=== PATIENT | female | born 1955 | race Caucasian/White ===

== ENCOUNTER → 2017-03-18 | Outpatient (CLI) | payer BC ==
--- NOTE | 2017-03-18 07:22 | US ---
EXAMINATION TYPE: US extremity nonvasc mass LT DATE OF EXAM: 03/18/2017 COMPARISON: NONE CLINICAL HISTORY: Left Thigh Mass R22.42. Patient feels palpble left upper inner thigh x 2 weeks, no injury or trauma. Scanned area of concern, left upper inner thigh, there is a 2.8 x 2.4 x 3.0 solid vascular area, poss ible node. IMPRESSION: 1. Nonspecific Solid mass at the site of clinical concern. Consider Tissue diagnosis.
== END | disposition home or self-care (01) ==
LOC: RADUSWWP 06:54
PROVIDERS: ATTEND Family Medicine
DX: R22.42 Localized swelling, mass and lump, left lower limb (principal)

== ENCOUNTER → 2017-04-23 | Outpatient (CLI) | payer BC ==
--- NOTE | 2017-04-23 17:28 | PE ---
EXAMINATION TYPE: PET CT fusion skull to thigh DATE OF EXAM: 04/23/2017 CLINICAL HISTORY: History of melanoma presents with newly diagnosed left groin cancer. Left surgical excision 3 days ago. TECHNIQUE: Following the intravenous administration of 15.45 mCi of F-18 FDG, whole body images are performed from the top of skull to the toes. Images are reviewed on the computer in the coronal, ax ial, and sagittal planes. Reconstructed rotating images are created on independent workstation and r eviewed on the computer. A non-contrast CT is performed in conjunction with the PET scan. Imaging o f bilateral lower extremities is performed due to patient's history of melanoma. COMPARISON: Recent left groin ultrasound March 18, 2017. FINDINGS: HEAD AND NECK: No suspicious hypermetabolic uptake is seen in the neck or head. CHEST, MEDIASTINUM, AND HILAR REGION: No suspicious hypermetabolic uptake is seen in the thorax. ABDOMEN AND PELVIS: There is medial left groin fluid collection measuring 4.3 x 2.9 cm on image 3 ser ies 8 presumed postsurgical seroma. No suspicious hypermetabolic uptake is seen in the abdomen or pel vis. OSSEOUS STRUCTURES: Metallic hardware from bilateral hip arthroplasties causes streak artifact limiti ng evaluation of pelvic structures. Metallic hardware from the knee prosthesis limits evaluation at this level. LOWER EXTREMITIES: No suspicious hypermetabolic uptake is seen in osseous structures. Distal left Ach illes tendon is thickened with calcification and hypermetabolic uptake suggesting chronic inflammatio n. OTHER CT: There is 2 cm mucous retention cyst or polyp in inferior right maxillary sinus. Mild cardiomegaly is present. Ascending aorta measures up to 4.2 cm in diameter on axial image 124. Surgical changes from left-sided lumpectomy are noted. Cholecystectomy clips are seen. Some diverticula in the sigmoid colon are felt present. IMPRESSION: No suspicious hypermetabolic uptake is seen to suggest persistent or metastatic neoplasm after recent left groin surgery. Note is made of 4.2 cm aneurysm to the ascending aorta.
== END | disposition home or self-care (01) ==
LOC: RADPETMAIN 13:04
PROVIDERS: ATTEND Surgery
DX: C85.90 Non-Hodgkin lymphoma, unspecified, unspecified site (principal); C79.89 Secondary malignant neoplasm of other specified sites; I71.2 Thoracic aortic aneurysm, without rupture
CPT/HCPCS: 78815; A9552

== ENCOUNTER 2018-02-25 13:13 | Inpatient (IN) | payer BC ==
[2018-02-25] MEDS ORDERED: ACETAMINOPHEN TAB 325 MG TAB PO STA (14:57)
[2018-02-25] MEDS ORDERED: PIPERACILLIN-TAZOBACTAM 3.375 GM in DEXTROSE/WATER 1 50ML.BAG IVPB STA (14:58)
[2018-02-25] MEDS ORDERED: VANCOMYCIN IV PER PHARMACY 1 EACH MISC MISCELLANE PRN (14:58)
--- NOTE | 2018-02-25 15:02 | ED ---
General Adult HPI - General Source: patient, RN notes reviewed, old records reviewed Mode of arrival: ambulatory Limitations: no limitations <Radha Lopez - Last Filed: 02/25/18 16:03> <Kendrick Corona - Last Filed: 02/25/18 16:10> - General Chief complaint: Extremity Problem,Nontraumatic Stated complaint: Cellulitis Time Seen by Provider: 02/25/18 14:22 - History of Present Illness Initial comments: this Patient is a pleasant 63-year-old female chief complaint of left medial leg redness and swelling for 1 day. Patient reports she has a history of malignant melanoma, and has had lymph nodes removed in her left groin and October. Patient states that she had her other injuries related to the onset of the redness. Patient reports she is redness from her foot all the way up to her medial thigh. Patient reports that yesterday evening she started to have chills and muscle aches. No history of blood clots.Patient was [facility] by [facility] and sent here for further evaluation.she also reports that she recently saw her primary care provider for changed her thyroid medications. She does not know if maybe her some of her symptoms are related to switching her medications. (Radha Lopez) - Related Data Home Medications Medication Instructions Recorded Confirmed Multivitamin/Iron/Folic Acid 1 tab PO DAILY 09/14/16 02/25/18 [Centrum Complete Multivit Tab] Olmesartan/Hydrochlorothiazide 1 tab PO DAILY 09/14/16 02/25/18 [Benicar Hct 40-25 mg Tablet] metFORMIN HCL [Glucophage] 500 mg PO BID 09/14/16 02/25/18 Loratadine [Claritin] 10 mg PO DAILY 07/03/17 02/25/18 Biotin 10,000 mcg PO DAILY 02/25/18 02/25/18 Levothyroxine Sodium [Synthroid] 75 mcg PO DAILY 02/25/18 02/25/18 Allergies Allergy/AdvReac Type Severity Reaction Status Date / Time cyanocobalamin (vitamin B12) Allergy Rash/Hives Verified 02/25/18 13:30 midazolam [From Versed] Allergy Rash/Hives Verified 02/25/18 13:30 Review of Systems ROS Other: All systems not noted in ROS Statement are negative. <Radha Lopez - Last Filed: 02/25/18 16:03> ROS Other: All systems not noted in ROS Statement are negative. <Kendrick Corona - Last Filed: 02/25/18 16:10> ROS Statement: Those systems with pertinent positive or pertinent negative responses have been documented in the HPI. Past Medical History Past Medical History: Cancer, Diabetes Mellitus, Hypertension, Pneumonia, Thyroid Disorder Additional Past Medical History / Comment(s): 07/05 Stage 3 melanoma left inner thigh History of Any Multi-Drug Resistant Organisms: None Reported Past Surgical History: Unable to Obtain, Appendectomy, Cholecystectomy, Hysterectomy, Orthopedic Surgery, Tonsillectomy Additional Past Surgical History / Comment(s): Lymphnode removal (L) groin. left knee and bilat hip replaced, sinus surgery Past Anesthesia/Blood Transfusion Reactions: No Reported Reaction, Postoperative Nausea & Vomiting (PONV) Past Psychological History: No Psychological Hx Reported Smoking Status: Never smoker Past Alcohol Use History: Occasional Past Drug Use History: Unable to Obtain - Past Family History Mother Family Medical History: Cancer Additional Family Medical History / Comment(s): of breast CA Father Family Medical History: Cancer Additional Family Medical History / Comment(s): from lung CA <Radha Lopez - Last Filed: 02/25/18 16:03> General Exam Limitations: no limitations General appearance: alert, in no apparent distress Head exam: Present: atraumatic, normocephalic, normal inspection Eye exam: Present: normal appearance, PERRL, EOMI. Absent: scleral icterus, conjunctival injection, periorbital swelling ENT exam: Present: normal exam, mucous membranes moist Neck exam: Present: normal inspection. Absent: tenderness, meningismus, lymphadenopathy Respiratory exam: Present: normal lung sounds bilaterally. Absent: respiratory distress, wheezes, rales, rhonchi, stridor Cardiovascular Exam: Present: regular rate, normal rhythm, normal heart sounds. Absent: systolic murmur, diastolic murmur, rubs, gallop, clicks GI/Abdominal exam: Present: soft, normal bowel sounds. Absent: distended, tenderness, guarding, rebound, rigid Extremities exam: Present: full ROM, normal capillary refill. Absent: normal inspection, tenderness, pedal edema, joint swelling, calf tenderness Left Upper Leg exam: Present: erythema (Patient has erythema extending up to the medial thigh. Well-appearing incision site from her lymph node removal in her groin.). Absent: normal inspection Knee exam: Present: full ROM, erythema Lower Leg exam: Present: swelling, erythema. Absent: normal inspection Ankle exam: Present: full ROM, erythema. Absent: normal inspection Foot/Toe exam: Present: normal inspection, full ROM Neurovascular tendon exam: Present: no vascular compromise Gait: observed and normal Back exam: Present: normal inspection Neurological exam: Present: alert, oriented X3, CN II-XII intact Psychiatric exam: Present: normal affect, normal mood Skin exam: Present: warm, dry, intact, normal color, erythema. Absent: rash Expanded 1 - cellulitis, erythema, induration <Radha Lopez - Last Filed: 02/25/18 16:03> <Kendrick Corona - Last Filed: 02/25/18 16:10> - General Exam Comments Initial Comments: this Patient is a 63-year-old female. Alert and oriented. No significant distress. (Radha Lopez) Course <Radha Lopez - Last Filed: 02/25/18 16:03> <Kendrick Corona - Last Filed: 02/25/18 16:10> Vital Signs 02/25/18 13:26 Temperature 98.3 F Pulse Rate 80 Respiratory 16 Rate Blood Pressure 174/80 O2 Sat by Pulse 96 Oximetry - Reevaluation(s) Reevaluation #1: 02/25/18 16:08 I did personally do a [id number] evaluation the patient did discuss the findings with her. Patient will be admitted for treatment of cellulitis of left lower extremity. (Kendrick Corona) Medical Decision Making - Radiology Data Radiology results: report reviewed <Radha Lopez - Last Filed: 02/25/18 16:03> <Kendrick Corona - Last Filed: 02/25/18 16:10> - Medical Decision Making Patient is a 63-year-old female chief complaint of swelling, erythema extending from her medial thigh to her foot. He reports that he happened for just 1 day. Does have a history of lymph node removal on her groin. Does have history of lymphedema due to this. It was due to malignant melanoma why she had her lymph node removed. Patient ultrasound was completed. Ultrasound is negative for DVT. Started on IV fluids. She does appear to have significant cellulitis extending the entire leg. I did draw over the area to delineate the area of redness. We'll start the Patient on Zosyn and vancomycin. We will admit the Patient at this time, with consults to infectious disease doctor Ramy. ( Radha Lopez) - Radiology Data Exam limited due to body habitus no diagnostic evidence for DVT is visualized. ( Radha Lopez) Disposition Is patient prescribed a controlled substance at d/c from ED?: No When asked, does pt state using other controlled substances?: No If prescribed controlled substance>3 days was MAPS reviewed?: No If opioid is for acute pain is fill amount 7 days or less?: No If Rx opioid, was Start Talking consent form obtained?: No Time of Disposition: 16:04 <Radha Lopez - Last Filed: 02/25/18 16:03> <Kendrick Corona - Last Filed: 02/25/18 16:10> Clinical Impression: Left leg cellulitis Disposition: ADMITTED IP TO THIS HOSP Condition: Good Referrals: Robbie Herring DO [Primary Care Provider] - 1-2 days
[2018-02-25] MEDS ORDERED: KETOROLAC 30 MG/ML 1 ML VIAL IVP STA (15:05)
[2018-02-25] MEDS ORDERED: SODIUM CHLORIDE 0.9% 1,000 ML IV ONE (15:05)
[2018-02-25] MEDS ORDERED: VANCOMYCIN 2,000 MG in SODIUM CHLORIDE 0.9% 500 ML IVPB ONE (15:30)
--- NOTE | 2018-02-25 15:41 | US ---
EXAMINATION TYPE: US venous doppler duplex LE LT DATE OF EXAM: 02/25/2018 3:18 PM COMPARISON: NONE CLINICAL HISTORY: Pain. Pt had multiple lymph nodes removed from left groin due to melanoma. Lt leg e rythema and tenderness. SIDE PERFORMED: Left TECHNIQUE: The lower extremity deep venous system is examined utilizing real time linear array sonog lindsey with graded compression, doppler sonography and color-flow sonography. VESSELS IMAGED: External Iliac Vein (EIV) Common Femoral Vein Deep Femoral Vein Greater Saphenous Vein * Femoral Vein Popliteal Vein Small Saphenous Vein * Proximal Calf Veins (* superficial vessels) Limited due to body habitus and increased swelling. Left Leg: Negative for DVT IMPRESSION: 1. Exam limited due to body habitus. No diagnostic evidence of DVT as visualized.
[2018-02-25 16:05] LABS: Basophils % (A) 0 %; Eosinophils # (A) 0.1 k/uL (0-0.7); Eosinophils % (A) 1 %; HCT 38.8 % (34.0-46.0); HGB 13.2 gm/dL (11.4-16.0); Lymphocytes # (A) 0.8 k/uL (1.0-4.8); Lymphocytes % (A) 5 %; MCH 27.8 pg (25.0-35.0); MCV 81.9 fL (80.0-100.0); Monocytes # (A) 0.3 k/uL (0-1.0); Monocytes % (A) 2 %; Neutrophils # (A) 14.2 k/uL (1.3-7.7); Neutrophils % (A) 91 %; Platelet Count 242 k/uL (150-450); RBC 4.74 m/uL (3.80-5.40); RDW 13.8 % (11.5-15.5); WBC 15.5 k/uL (3.8-10.6)
[2018-02-25] MEDS ORDERED: MORPHINE SULFATE 2 MG/ML SYRINGE IV PRN (16:05)
[2018-02-25] MEDS ORDERED: IBUPROFEN 400 MG TAB PO PRN (16:05)
[2018-02-25] MEDS ORDERED: ONDANSETRON 4 MG/2 ML VIAL IVP PRN (16:05)
[2018-02-25] MEDS ORDERED: ACETAMINOPHEN TAB 325 MG TAB PO PRN (16:05)
[2018-02-25] MEDS ORDERED: NALOXONE 0.4 MG/ML 1 ML VIAL IV PRN (16:05)
[2018-02-25] MEDS ORDERED: KETOROLAC 30 MG/ML 1 ML VIAL IVP PRN ×2 (16:05→17:06)
[2018-02-25 16:17] LABS: ALT 32 U/L (9-52); AST 22 U/L (14-36); Albumin 4.2 g/dL (3.5-5.0); Alkaline Phosphatase 106 U/L (38-126); Anion Gap 16 mmol/L; Blood Urea Nitrogen 25 mg/dL (7-17); Calcium 10.2 mg/dL (8.4-10.2); Carbon Dioxide 28 mmol/L (22-30); Chloride 94 mmol/L (98-107); Glucose 236 mg/dL (74-99); Potassium 3.5 mmol/L (3.5-5.1); Sodium 138 mmol/L (137-145); Total Bilirubin 0.7 mg/dL (0.2-1.3); Total Protein 7.2 g/dL (6.3-8.2)
[2018-02-25] MEDS: SODIUM CHLORIDE 0.9% 1,000 ML IV SCH (16:22)
[2018-02-25] MEDS ORDERED: HYDROcodone/APAP 5-325MG 1 EACH TAB PO PRN (17:05)
[2018-02-25 18:07] VITALS: BMI 43.8
[2018-02-25 18:17] LABS: Glucose,Whole Blood 218 mg/dL (75-99)
--- NOTE | 2018-02-25 19:22 | HP ---
HISTORY AND PHYSICAL DATE OF SERVICE: 02/25/2018 I am covering for Dr. Herring. CHIEF COMPLAINT: Pain and swelling of the left leg and as well shaking. HISTORY OF PRESENT ILLNESS: This 63-year-old woman with a past medical history of multiple medications including diabetes, hypertension, hypothyroidism, being followed by Dr. Herring in the outpatient setting, also had malignant melanoma of groin with lymph node dissection last year. The patient underwent lymphedema therapy. The patient had infections subsequently, but the patient improved significantly and the patient noted some redness and swelling of the left leg and also had some shaking chills and the patient came to [facility] and admitted for further evaluation and treatment. There is no history any headache, loss of consciousness, hematochezia or melena at this time. PAST MEDICAL HISTORY: History of diabetes, hypertension, hypothyroidism, history of stage III melanoma left inner thigh and as well as lymph node dissection at [facility]. MEDICATIONS: Prior to admission include home medications are: 1. Biotin 10,000 mcg p.o. daily. 2. Glucophage 500 mg p.o. daily. 3. Benicar 1 tablet p.o. daily. 4. Multivitamin 1 p.o. daily. 5. Claritin 10 mg p.o. daily. 6. Synthroid 75 mcg p.o. daily. ALLERGIES: VITAMIN B12.VERSED. FAMILY HISTORY: History of breast cancer in the family. SOCIAL HISTORY: No history of smoking. No alcohol intake. REVIEW OF SYSTEMS: ENT: No diminished hearing, vision. CARDIOVASCULAR: No angina. RESPIRATORY: No cough or hemoptysis. GI: No nausea. : No dysuria. NERVOUS SYSTEM: No numbness or weakness. ALLERGY/IMMUNOLOGY: No history of asthma. MUSCULOSKELETAL: As mentioned earlier. HEMATOLOGY/ONCOLOGY: No history of anemia. ENDOCRINE: Diabetes mellitus, hypothyroidism. CONSTITUTIONAL: As mentioned earlier. DERMATOLOGY: Negative. RHEUMATOLOGY: Negative. PSYCHIATRY: As mentioned earlier. PHYSICAL EXAMINATION: Alert, oriented x3. Pulse 83, blood pressure 133/63, respiration 18, temperature 98.9, pulse ox 98% on room air. HEENT: Conjunctivae normal. NECK: No jugular venous distention. CARDIOVASCULAR: S1, S2. RESPIRATORY: Breath sounds diminished in the bases. No rhonchi. No crackles. ABDOMEN: Soft, nontender. No mass palpable. LEGS: Significant erythema, swelling and pain of the left leg present extensively starting from the ankle to the inner upper thigh. NERVOUS SYSTEM: Higher functions as mentioned earlier. Moves all four limbs. No focal deficits LYMPHATIC: No lymphadenopathy in the neck, axillae, groin. SKIN: As mentioned earlier. LABS: WBC 15.5, hemoglobin 13.2 sodium 130, potassium 3.5. Glucose 230. ASSESSMENT: 1. Acute cellulitis on the left leg with possibly early sepsis. 2. Increased WBC. 3. Diabetes mellitus type 2. 4. Hypothyroidism. 5. Hypertension. 6. History of pneumonia. 7. History of stage III melanoma of the left inner thigh with groin dissections. 8. History of hysterectomy. 9. History of cholecystectomy. RECOMMENDATIONS AND DISCUSSION: This 63-year-old woman who presented with multiple complex medical issues, we will monitor the patient closely. Continue the current management and symptomatic treatment. Will initiate broad-spectrum antibiotics. Infectious disease evaluation. Cultures. Guarded prognosis because of multiple complex medical issues. Further recommendations to follow. MRI is also recommended and monitor blood sugars closely. Prognosis guarded because of multiple complex medical issues. Further recommendations to follow. Copy of dictation forwarded to Dr. Herring who is the primary physician. MMODL / IJN: [id number] /
[2018-02-25] MEDS: INSULIN ASPART 100 UNIT/ML 1 ML 10 ML VIAL SQ SCH (19:33)
[2018-02-25] MEDS: metFORMIN 500 MG TAB PO SCH (20:11)
[2018-02-25 21:34] LABS: Glucose,Whole Blood 266 mg/dL (75-99)
[2018-02-25] MEDS ORDERED: IPRATROPIUM-ALBUTEROL 3 ML NEB INHALATION PRN (21:55)
--- NOTE | 2018-02-25 22:21 | XR ---
EXAMINATION TYPE: XR chest 1V portable DATE OF EXAM: 02/25/2018 COMPARISON: NONE HISTORY: Difficulty breathing TECHNIQUE: Single frontal view of the chest is obtained. FINDINGS: There is no heart failure nor confluent pneumonic infiltrate. There is mild subsegmental a telectasis in the left midlung. Heart size is normal. There is no pleural effusion. IMPRESSION: Subsegmental atelectasis in the left midlung.
--- NOTE | 2018-02-25 22:44 | CT ---
EXAMINATION TYPE: CT chest angio for PE DATE OF EXAM: 02/25/2018 COMPARISON: NONE HISTORY: Difficulty breathing after possible allergic reaction. CT DLP: 516.9 mGycm Automated exposure control for dose reduction was used. CONTRAST: CT Chest for pulmonary embolism performed with with IV Contrast, patient injected with 60ml mL of Iso sharita 370. FINDINGS: There are 3-D post processed images. The lungs are clear of consolidation. There is no evidence of a pulmonary mass. There is mild linear interstitial density in the left midlung in the lingula left upper lobe as well as the posterior lung bases. There is no pleural effusion. There are no filling defects in the pulmonary arteries. There a re no hilar masses. There is no mediastinal adenopathy. There is no evidence of thoracic aortic aneur ysm or dissection. There is mild spurring in the thoracic spine. IMPRESSION: No evidence of pulmonary embolism. Mild subsegmental atelectasis.
[2018-02-26] MEDS: INSULIN ASPART 100 UNIT/ML 1 ML 10 ML VIAL SQ SCH ×5 (00:05→20:59)
[2018-02-26] MEDS: HEPARIN SODIUM,PORCINE 5,000 UNIT/ML 1 ML VIAL SQ SCH ×3 (00:52→20:59)
[2018-02-26] MEDS: diphenhydrAMINE 50 MG/ML 1 ML VIAL IVP SCH ×3 (00:54→06:37)
[2018-02-26] MEDS: methylPREDNISolone SOD SUCCI 125 MG/2 ML VIAL IV SCH ×4 (00:55→12:25)
[2018-02-26] MEDS: SODIUM CHLORIDE 0.9% 1,000 ML IV SCH ×4 (00:55→08:24)
[2018-02-26] MEDS: ceFAZolin IN SWFI 2 GM/20 ML SYRINGE IVP SCH ×2 (02:29→09:02)
[2018-02-26] MEDS: LEVOTHYROXINE 75 MCG TAB PO SCH (06:37)
[2018-02-26] MEDS: metFORMIN 500 MG TAB PO SCH ×2 (06:39→17:22)
[2018-02-26 06:41] LABS: Basophils % (A) 0 %; Eosinophils % (A) 0 %; HGB 12.1 gm/dL (11.4-16.0); Lymphocytes # (A) 0.4 k/uL (1.0-4.8); Lymphocytes % (A) 3 %; MCH 28.3 pg (25.0-35.0); MCHC 33.7 g/dL (31.0-37.0); Mean Platelet Volume 7.8; Monocytes # (A) 0.2 k/uL (0-1.0); Monocytes % (A) 2 %; Neutrophils # (A) 10.9 k/uL (1.3-7.7); Neutrophils % (A) 95 %; Platelet Count 197 k/uL (150-450); RBC 4.29 m/uL (3.80-5.40); RDW 13.9 % (11.5-15.5); WBC 11.5 k/uL (3.8-10.6)
[2018-02-26 06:57] LABS: Anion Gap 13 mmol/L; Blood Urea Nitrogen 19 mg/dL (7-17); Calcium 9.4 mg/dL (8.4-10.2); Carbon Dioxide 28 mmol/L (22-30); Chloride 100 mmol/L (98-107); Glucose 347 mg/dL (74-99); Potassium 3.8 mmol/L (3.5-5.1); Sodium 141 mmol/L (137-145)
[2018-02-26 06:58] LABS: Glucose,Whole Blood 344 mg/dL (75-99)
[2018-02-26] MEDS: IPRATROPIUM-ALBUTEROL 3 ML NEB INHALATION SCH ×4 (07:48→19:37)
[2018-02-26] MEDS ORDERED: VANCOMYCIN 2,000 MG in SODIUM CHLORIDE 0.9% 500 ML IVPB SCH (08:00)
[2018-02-26] MEDS: LORATADINE 10 MG TAB PO SCH (08:22)
[2018-02-26] MEDS: HYDROCHLOROTHIAZIDE 25 MG TAB PO SCH (08:22)
[2018-02-26] MEDS: LOSARTAN 50 MG TAB PO SCH (08:22)
[2018-02-26] MEDS ORDERED: PANTOPRAZOLE 40 MG/10 ML VIAL IV SCH (09:00)
[2018-02-26] MEDS ORDERED: NON-FORMULARY DRUG (Biotin [Biotin] 10,000 MCG) PO SCH (09:00)
[2018-02-26 12:02] LABS: Glucose,Whole Blood 369 mg/dL (75-99)
[2018-02-26] MEDS: MULTIVITAMINS, THERA 1 EACH TAB PO SCH (12:25)
[2018-02-26] MEDS: DAPTOmycin 500 MG in SODIUM CHLORIDE 0.9% 50 ML IVPB SCH (12:57)
[2018-02-26] MEDS: FLUTICASONE 50MCG/SPRAY NASAL 16GM EA NOSTRIL PRN (15:27)
--- NOTE | 2018-02-26 15:47 | PN ---
PROGRESS NOTE DATE OF SERVICE: 02/26/2018. INTERVAL HISTORY: This 63-year-old woman who was admitted with acute cellulitis and had features of sepsis also. No chest pain. No palpitations. No fever. CT was negative. The patient had shaking and chills yesterday. The cultures showed the preliminary blood culture shows gram-positive cocci. The patient is started on daptomycin. PAST MEDICAL HISTORY: Reviewed. PHYSICAL EXAM: Alert and oriented x3. Pulse is 67, blood pressure 140/70, respiration 18, temperature 97.6, pulse ox 94% on room air. HEENT is conjunctivae normal. NECK: No jugular venous distention. CARDIOVASCULAR: S1, S2 muffled. RESPIRATORY: Breath sounds diminished in the bases. No rhonchi and no crackles. ABDOMEN: Soft, nontender. LEGS: Left leg cellulitis present which is slightly improving compared to yesterday. ABDOMEN: Soft, nontender. NERVOUS SYSTEM: No focal deficits. LABS: WBC 11.5, glucose 347, 344 and 369. ASSESSMENT: 1. Acute cellulitis of the left leg with sepsis present on admission. 2. Increased WBC. 3. Diabetes type 2. Uncontrolled with hyperglycemia. 4. Hypothyroid. 5. Hypertension. 6. History of pneumonia. 7. History of stage III melanoma of the left inner thigh with groin dissections. 8. History of hysterectomy. 9. History of cholecystectomy. RECOMMENDATIONS AND DISCUSSION: Recommend to continue current management and symptomatic treatment. Otherwise, continue the broad-spectrum IV antibiotics. Follow the cultures. The patient is on IV daptomycin. Monitor blood sugars closely and taper the steroids. Discussed with the patient. Prognosis guarded. The patient understands and agrees. Dr. Herring will follow. MMODL / IJN: [id number] /
[2018-02-26 17:21] LABS: Glucose,Whole Blood 446 mg/dL (75-99)
[2018-02-26 17:21] LABS: Glucose,Whole Blood 475 mg/dL (75-99)
[2018-02-26] MEDS: methylPREDNISolone SOD SUCCI 40 MG/ML 1 ML VIAL IV SCH (17:21)
[2018-02-26 20:51] LABS: Glucose,Whole Blood 430 mg/dL (75-99)
--- NOTE | 2018-02-26 22:55 | CONS ---
CONSULTATION DATE OF SERVICE: 02/26/2018. REASON FOR CONSULTATION: Sepsis and left lower extremity cellulitis. HISTORY OF PRESENT ILLNESS: The patient is a 63-year-old female who did have a history of melanoma to the left leg. The patient did have resection of about 21 lymph nodes to the left groin area at the [facility] in February of 2017. Subsequently the patient did have lymphedema to the left leg. The patient about 2 nights ago started having shivers with rigors and chills. Yesterday she noticed the left leg to be getting swollen and red with some erythema. The patient did have some tenderness to the left leg described to be about 1 to 2 out of 10, and no significant radiation. The patient denies having any skin breakdown or any drainage. The patient did went to an urgent care, however, they advised the patient to go to the ER to rule out any blood clot. The patient did have a left lower extremity Doppler done that was negative for DVT. Patient has been diagnosed with cellulitis and she was started on Zosyn and vancomycin. While the patient was on the 5th floor and undergoing vancomycin infusion, the patient did have an episode of rigors and chills and the patient was a bit hard to breathe, but denies having any wheezing. No tongue swelling or any closing of neck or any rash. She was diagnosed with possible allergy reaction to the vancomycin. She did have a CT angiogram that was negative for PE and subsequently transferred to the [facility]. The patient's blood cultures coming back positive this morning. Hence, antibiotic has been switched over to daptomycin pending ID evaluation. The patient, at the time of my evaluation, is feeling better. She is breathing comfortably. Denies having any chest pain, shortness of breath, or any cough. No abdominal pain. Currently denies any pain to the left leg. The erythema has slightly receded comparing to yesterday. REVIEW OF SYSTEMS: Constitutionally: Positive for weakness along with rigors and chills. Eyes: No complaint. ENT: No complaint. Respiratory: Shortness of breath. Cardiovascular: No complaint. Genitourinary: No complaint. Gastrointestinal: No complaint. ABDOMEN: No complaint. MUSCULOSKELETAL: As per HPI. Integumentary: As mentioned earlier. Psychological: No complaint. Endocrine: Patient diabetic with sugars running on the high side. Neurologic no complaint. PAST MEDICAL HISTORY: Significant for melanoma, diabetes mellitus, hypertension, pneumonia, hypothyroidism. PAST SURGICAL HISTORY: Appendectomy, cholecystectomy, hysterectomy, tonsillectomy. Lymph node removed from left groin, bilateral hip replaced, sinus surgery. SOCIAL HISTORY: Occasionally drinks. No smoking or any drug use. FAMILY HISTORY: Mother with history of breast cancer. Father from lung cancer. ALLERGIES: . MEDICATIONS: Include the patient is currently on Tylenol, [place], DuoNeb, daptomycin 500 daily, Flonase, heparin, hydrochlorothiazide, Motrin, NovoLog, Toradol, Synthroid, Claritin, Cozaar, Glucophage, Solu-Medrol, morphine sulfate, Theragran, Narcan, Zofran and Protonix. PHYSICAL EXAMINATION: Blood pressure 133/54 with a pulse of 72, temperature 96.7. She is 93% on room air. General description is a middle-aged female up in the bed in no distress. No tachypnea or accessory muscle of respiration use. HEENT examination: No pallor or scleral icterus. Oral mucosa membranes moist with no significant erythema or thrush. Neck: Trachea central. NECK: Supple. Lungs unlabored breathing. Clear to auscultation. No wheeze or crackles. Heart S1, S2. Regular rate and rhythm. ABDOMEN: Soft, no tenderness. No guarding. No rigidity. Extremities: Left leg swelling and redness with erythema, slightly warm to touch. No skin breakdown. No evidence of Athlete's foot or any drainage. Neurological: The patient is awake, alert, oriented x3. Mood and affect normal. LABS: Hemoglobin is 11.5. Admission white count was 15.5, hemoglobin of 12, BUN of 19, creatinine 0.76. Electrolytes has been normal. Blood culture with gram-positive cocci. DIAGNOSTIC IMPRESSION AND PLAN: 1. Patient admitted to the hospital with sepsis in a patient who did have extensive left lower extremity cellulitis with risk factors including melanoma surgery and lymph node resection with subsequent lymphedema to the leg, more likely from a gram-positive skin faisal suggestive of Strep. Less likely Methicillin-resistant Staphylococcus aureus. 2. Patient who did have , more likely skin underlying infection secondary to the vancomycin allergy. PLAN: 1. Blood culture has been repeated to document clearance of her bacteremia. 2. Daptomycin 500 daily while waiting for the final ID of this gram-positive, if finalized as strep, antibiotic will be transitioned to cefazolin. 3. We will follow up on the clinical condition and culture to further adjust medication if needed. Thank you for this consultation. We will follow this patient along with you. CHARLOTTE / IJN: [id number] /
[2018-02-27] MEDS: methylPREDNISolone SOD SUCCI 40 MG/ML 1 ML VIAL IV SCH ×2 (00:17→08:23)
[2018-02-27 03:48] LABS: Basophils % (A) 0 %; Eosinophils % (A) 0 %; HCT 34.6 % (34.0-46.0); HGB 11.5 gm/dL (11.4-16.0); Lymphocytes # (A) 0.5 k/uL (1.0-4.8); Lymphocytes % (A) 4 %; MCH 27.7 pg (25.0-35.0); MCHC 33.3 g/dL (31.0-37.0); MCV 83.2 fL (80.0-100.0); Monocytes # (A) 0.3 k/uL (0-1.0); Monocytes % (A) 2 %; Neutrophils # (A) 12.4 k/uL (1.3-7.7); Neutrophils % (A) 94 %; Platelet Count 235 k/uL (150-450); RBC 4.16 m/uL (3.80-5.40); RDW 13.9 % (11.5-15.5); WBC 13.2 k/uL (3.8-10.6)
[2018-02-27 04:09] LABS: Anion Gap 12 mmol/L; Blood Urea Nitrogen 17 mg/dL (7-17); Calcium 9.6 mg/dL (8.4-10.2); Carbon Dioxide 29 mmol/L (22-30); Chloride 101 mmol/L (98-107); Glucose 327 mg/dL (74-99); Potassium 3.8 mmol/L (3.5-5.1); Sodium 142 mmol/L (137-145)
[2018-02-27 06:10] LABS: Glucose,Whole Blood 340 mg/dL (75-99)
[2018-02-27] MEDS: INSULIN ASPART 100 UNIT/ML 1 ML 10 ML VIAL SQ SCH ×2 (06:15→11:56)
[2018-02-27] MEDS: metFORMIN 500 MG TAB PO SCH (06:15)
[2018-02-27] MEDS: LEVOTHYROXINE 75 MCG TAB PO SCH (06:15)
[2018-02-27] MEDS: IPRATROPIUM-ALBUTEROL 3 ML NEB INHALATION SCH ×2 (07:01→11:54)
[2018-02-27] MEDS ORDERED: PANTOPRAZOLE 40 MG TABLET PO SCH (07:30)
[2018-02-27] MEDS: HEPARIN SODIUM,PORCINE 5,000 UNIT/ML 1 ML VIAL SQ SCH (08:23)
[2018-02-27] MEDS: LORATADINE 10 MG TAB PO SCH (08:23)
[2018-02-27] MEDS: MULTIVITAMINS, THERA 1 EACH TAB PO SCH (08:23)
[2018-02-27] MEDS: HYDROCHLOROTHIAZIDE 25 MG TAB PO SCH (08:23)
[2018-02-27] MEDS: LOSARTAN 50 MG TAB PO SCH (08:23)
[2018-02-27] MEDS: FLUTICASONE 50MCG/SPRAY NASAL 16GM EA NOSTRIL PRN (08:23)
[2018-02-27 08:30] VITALS: RESP 18
[2018-02-27] MEDS ORDERED: predniSONE 20 MG TAB PO SCH (09:00)
[2018-02-27 11:13] LABS: Glucose,Whole Blood 347 mg/dL (75-99)
[2018-02-27] MEDS: DAPTOmycin 500 MG in SODIUM CHLORIDE 0.9% 50 ML IVPB SCH (11:37)
[2018-02-27 12:08] VITALS: BP 133/75; PULSE 59; TEMP 96.5
--- NOTE | 2018-02-27 12:32 | P.DS ---
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 The patient complained of increased edema and erythema to her left lower extremity and came to the emergency room for further evaluation. The patient denied any fever or chills at home. Denies shortness of breath or chest pain. She was found to have cellulitis of the left lower extremity with leukocytosis. Infectious disease was consulted. The patient was started on daptomycin. Blood cultures were completed, which were positive for coagulase-negative staph. Dr. Remy, infectious disease recommends Keflex 500 mg every 6 hours 10 days at the time of discharge. Her erythema and edema has significantly improved to her left lower extremity. The patient was deemed stable for discharge per Dr. Herring. She is to follow up on an outpatient basis with Dr. Herring and Dr. Remy. DISCHARGE DIAGNOSIS: Acute cellulitis of the left lower extremity, improved at time of discharge Sepsis with leukocytosis, present on admission, secondary to above, resolved at time of discharge Diabetes mellitus, type II Hypothyroidism Hypertension History of stage III melanoma of left inner thigh with lymph node dissection Nurse practitioner note has been reviewed by physician. Signing provider agrees with the documented findings, assessment, and plan of care. Patient Condition at Discharge: Good Plan - Discharge Summary Discharge Rx Participant: No New Discharge Prescriptions: New methylPREDNISolone Dose Pack [Medrol Dose Pack] 4 mg PO DIRECTED #21 package Continue Olmesartan/Hydrochlorothiazide [Benicar Hct 40-25 mg Tablet] 1 tab PO DAILY Multivitamin/Iron/Folic Acid [Centrum Complete Multivit Tab] 1 tab PO DAILY metFORMIN HCL [Glucophage] 500 mg PO AC-TID Loratadine [Claritin] 10 mg PO DAILY Levothyroxine Sodium [Synthroid] 75 mcg PO DAILY Biotin 10,000 mcg PO DAILY metFORMIN HCL [Glucophage] 500 mg PO AC-SUPPER PRN PRN Reason: BLOOD SUGAR <200 Cholecalciferol [Vitamin D3] 5,000 unit PO Q48H Cholecalciferol [Vitamin D3] 10,000 unit PO Q48H Discharge Medication List Multivitamin/Iron/Folic Acid [Centrum Complete Multivit Tab] 1 tab PO DAILY [History] Olmesartan/Hydrochlorothiazide [Benicar Hct 40-25 mg Tablet] 1 tab PO DAILY [History] metFORMIN HCL [Glucophage] 500 mg PO AC-TID 09/14/16 [History] Loratadine [Claritin] 10 mg PO DAILY 07/03/17 [History] Biotin 10,000 mcg PO DAILY 02/25/18 [History] Cholecalciferol [Vitamin D3] 5,000 unit PO Q48H 02/25/18 [History] Cholecalciferol [Vitamin D3] 10,000 unit PO Q48H 02/25/18 [History] Levothyroxine Sodium [Synthroid] 75 mcg PO DAILY 02/25/18 [History] metFORMIN HCL [Glucophage] 500 mg PO AC-SUPPER PRN 02/25/18 [History] methylPREDNISolone Dose Pack [Medrol Dose Pack] 4 mg PO DIRECTED #21 package 02/27/18 [Rx] Follow up Appointment(s)/Referral(s): Robbie Herring DO [Primary Care Provider] - 03/07/18 2:40 pm (Tuesday)
--- NOTE | 2018-02-27 20:12 | PN ---
PROGRESS NOTE DATE OF SERVICE: 02/27/2018. REASON FOR FOLLOWUP: Left leg cellulitis positive blood culture. INTERVAL HISTORY: The patient was seen on rounds this morning. The patient has been afebrile, breathing comfortably. Overall swelling of the left leg has improved. No chest pain, shortness of breath, abdominal pain, or any diarrhea. EXAMINATION: Blood pressure is 133/75 with a pulse of 59, temperature 96.5. She is 96% on room air. General description is a middle-aged female up in the bed in no distress. RESPIRATORY SYSTEM: Unlabored breathing, clear to auscultation anteriorly. HEART: S1, S2. Regular rate and rhythm. ABDOMEN: Soft. Left leg swelling 70 degrees. LABS: White count of 13.2 with a BUN of 17, creatinine 0.62. Blood culture with coag- negative staph. DIAGNOSTIC IMPRESSION AND PLAN: 1. Patient with left lower extremity cellulitis likely streptococcal disease. The patient currently insisting on going home. Antibiotic will be switched over to Keflex 500 mg p.o. q.6 hours for 10 days with close outpatient followup. 2. Positive blood culture with coagulase negative Staph, likely a skin contamination and no need for further workup for the same. MMODL / IJN: [id number] /
[2018-02-28] MEDS ORDERED: predniSONE 20 MG TAB PO SCH (09:00)
== END 2018-02-27 13:07 | disposition home or self-care (01) | DRG 872 ==
LOC: EC 13:13 → 5MS5E 16:05 → 6SEL 22:57
PROVIDERS: ADMIT Family Medicine; ATTEND Family Medicine
DX: A41.9 Sepsis, unspecified organism (principal); L03.116 Cellulitis of left lower limb; E03.9 Hypothyroidism, unspecified; E11.65 Type 2 diabetes mellitus with hyperglycemia; I10 Essential (primary) hypertension; I89.0 Lymphedema, not elsewhere classified; Z80.1 Family history of malignant neoplasm of trachea, bronchus and lung; Z80.3 Family history of malignant neoplasm of breast; Z85.820 Personal history of malignant melanoma of skin; Z87.01 Personal history of pneumonia (recurrent); Z88.1 Allergy status to other antibiotic agents; Z90.49 Acquired absence of other specified parts of digestive tract; Z90.710 Acquired absence of both cervix and uterus; Z96.652 Presence of left artificial knee joint; Z96.643 Presence of artificial hip joint, bilateral; Z79.84 Long term (current) use of oral hypoglycemic drugs; Z79.890 Hormone replacement therapy; Z79.899 Other long term (current) drug therapy; Z88.5 Allergy status to narcotic agent; Z91.048 Other nonmedicinal substance allergy status; B95.7 Other staphylococcus as the cause of diseases classified elsewhere
CPT/HCPCS: 36415; 71045; 71275; 80048; 80053; 83036; 83605; 85025; 87040; 87077; 87086; 87186; 96365; 96375; 99285

== ENCOUNTER → 2018-06-15 | Outpatient (CLI) | payer BC ==
--- NOTE | 2018-06-15 13:36 | US ---
EXAMINATION TYPE: US duplex aorta DATE OF EXAM: 06/15/2018 COMPARISON: CT chest angio 02/25/2018, PET CT 04/23/2017 CLINICAL HISTORY: 63-year-old female I77.81 Aorta ectasia. TECHNIQUE: Multiple sonographic images of the abdominal aorta are obtained. FINDINGS: EXAM MEASUREMENTS: Abdominal Aorta: Proximal: 2.5 x 2.3 cm Mid: 1.8 x 1.9 cm Distal: 2.1 x 2.3 cm Bifurcation: RT: 1.2 x 1.0 cm LT: 1.3 x 1.0 cm Lion Hunter notes: Atherosclerotic changes visualized. Proximal portion of the abdominal aorta is ect atic. 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 No evidence for AAA.
== END | disposition home or self-care (01) ==
LOC: RADUSWWP 07:15
PROVIDERS: ATTEND Family Medicine
DX: I77.811 Abdominal aortic ectasia (principal)
CPT/HCPCS: 93979

== ENCOUNTER → 2018-07-05 | Outpatient (CLI) | payer BC ==
--- NOTE | 2018-07-05 15:17 | XR ---
EXAMINATION TYPE: XR chest 2V DATE OF EXAM: 07/05/2018 COMPARISON: Prior chest x-ray and chest CT 02/25/2018 HISTORY: Preop knee surgery TECHNIQUE: Frontal and lateral views of the chest are obtained. FINDINGS: There is no focal air space opacity, pleural effusion, or pneumothorax seen. The cardiac silhouette size is stable, prominence in the appearance may be due to technique. The osseous struct ures are intact. The aorta is dense and aneurysmal. IMPRESSION: No acute cardiopulmonary disease. Aortic aneurysm.
== END ==
LOC: RADXRMAIN 14:03
PROVIDERS: ATTEND Family Medicine
DX: Z01.818 Encounter for other preprocedural examination (principal); I71.9 Aortic aneurysm of unspecified site, without rupture
CPT/HCPCS: 71046

== ENCOUNTER → 2018-07-18 | Outpatient (CLI) | payer BC | END | disposition home or self-care (01) | LOC: LABPAT 14:14 | PROVIDERS: ATTEND Orthopaedic Surgery | DX: Z01.812 Encounter for preprocedural laboratory examination (principal) | CPT/HCPCS: 87070 ==

== ENCOUNTER 2018-07-25 08:43 | Inpatient (IN) | payer BC ==
[2018-07-18 10:30] VITALS: BMI 38.9
--- NOTE | 2018-07-24 09:12 | HP ---
HISTORY AND PHYSICAL CHIEF COMPLAINT: Right knee pain. HISTORY OF PRESENT ILLNESS: The patient is a 63-year-old retired female who presents with progressive right knee pain secondary to osteoarthrosis despite conservative measures. She has tried previous injections and medications with only partial temporary relief. She notes she is limping and is considerably slowed down by pain. PAST MEDICAL HISTORY: Significant for type 2 diabetes, hypothyroidism, melanoma, and arthritis. PAST SURGICAL HISTORY: Significant for left total knee arthroplasty, left total hip arthroplasty, right total hip arthroplasty, hysterectomy, cholecystectomy, and melanoma resection. CURRENT MEDICATIONS: 1. Benicar. 2. Metformin. 3. Synthroid. ALLERGIES: She notes allergies to MIDAZOLAM and VITAMIN B12. FAMILY HISTORY: Significant for cancer and hypertension. SOCIAL HISTORY: Negative for current tobacco or alcohol use. REVIEW OF SYSTEMS: Sixteen-point review of systems otherwise reviewed and is noncontributory. PHYSICAL EXAMINATION: On examination, the patient is approximately 5 feet 7 inches, 250 pounds of endomorphic habitus. She has a BMI of 39.16. HEENT exam is nonfocal. Neck is supple. On examination of her right knee, she has a moderate effusion. She is tender about the medial joint line. Active motion -24 to 70 degrees of flexion. Collaterals are stable, Prachi's negative, Michelle's is equivocal. She has genu varum alignment. Her distal neurovascular exam appears intact in the right lower extremity. IMPRESSION: 1. Right knee severe medial and patellofemoral compartment osteoarthrosis. 2. Body mass index 39.16. 3. History of melanoma, currently on immunotherapy. PLAN: I talked to the patient at length regarding her condition and treatment options. She remains quite symptomatic despite conservative measures. After a thorough discussion, she opts to proceed with surgery. We will plan to proceed with right total knee arthroplasty. We will institute DVT prophylaxis postoperatively. The patient underwent preoperative medical evaluation by her oncologist and was cleared for surgery. MMODL / IJN: [id number] /
[~2018-07-25 08:43] MED LIST: ACETAMINOPHEN TAB 500 MG TAB PO ONE; DEXAMETHASONE SOD PHOSPHATE 10 MG/ML 1 ML VIAL IV ONE; LIDOCAINE 1% 20 ML VIAL (10MG/ML) FOR IV START INTRADERMA PRN; MELOXICAM 7.5 MG TAB PO ONE; ONDANSETRON 4 MG/2 ML VIAL IVP ONE; TRANEXAMIC ACID 1,000 MG in SODIUM CHLORIDE 0.9% 50 ML IVPB ONE; ceFAZolin IN SWFI 2 GM/20 ML SYRINGE IVP ONE; fentaNYL (PF) 50 MCG/ML 2 ML AMP IV PRN
[2018-07-25 09:33] LABS: Glucose,Whole Blood 156 mg/dL (75-99)
[2018-07-25] MEDS: LACTATED RINGERS 1,000 ML IV SCH ×2 (09:35→14:33)
[2018-07-25] MEDS ORDERED: fentaNYL (PF) 50 MCG/ML 2 ML AMP IVP ONE (09:47)
[2018-07-25] MEDS ORDERED: ROPIVACAINE 246.25 MG, EPINEPHrine 0.5 MG, KETOROLAC 30 MG, cloNIDine HCL/PF 80 MCG, WA... MISCELLANE ONE ×5 (09:59)
[2018-07-25] MEDS ORDERED: ROPIVACAINE 1,100 MG, SODIUM CHLORIDE 0.9% 500 ML 330 ML MISCELLANE PRN ×2 (10:12)
--- NOTE | 2018-07-25 10:13 | P.ONQ ---
Anesthesiology Proc Note - PNB - Peripheral Nerve Block Performed Right Adductor Canal Infusion Time Out Performed: Yes Procedure Start Time: 09:48 Procedure Stop Time: :58 Indication: Acute Post-Operative Pain, Requested by physician Sedation Type: Sedate with meaningful contact maintained Preparation: Sterile Dressing Position: Supine Catheter: Indwelling Needle Types: On-Q Needle Size: 100mm (4") Needle Gauge: 21 Technique: Ultrasound Injectate: 0.5% Ropivacaine (see comment for volume) (ropi .5% 20cc) Blood Aspirated: No Pain Paresthesia on Injection Noted: No Resistance on Injection: Normal Events: Uneventful and Well Tolerated
[2018-07-25] MEDS ORDERED: SODIUM CHLORIDE 0.9% 100 ML BAG ONE (10:50)
[2018-07-25] MEDS ORDERED: TRANEXAMIC ACID 1,000 MG/10 ML VIAL ONE (10:50)
[2018-07-25] MEDS ORDERED: fentaNYL (PF) 50 MCG/ML 2 ML AMP ONE (10:50)
[2018-07-25] MEDS ORDERED: PHENYLEPHRINE-0.9% NACL SYG 1 MG/10 ML SYRINGE ONE (10:50)
[2018-07-25] MEDS ORDERED: ePHEDrine SULFATE/0.9% NACL/PF 50 MG/5 ML SYRINGE IV ONE (10:50)
[2018-07-25] MEDS ORDERED: PROPOFOL 10 MG/ML 20 ML VIAL IV ONE (10:50)
[2018-07-25] MEDS ORDERED: ceFAZolin 3,000 MG in SODIUM CHLORIDE 0.9% IRRIGATIO 3,000 ML IRRIGATION ONE (11:25)
[2018-07-25] MEDS ORDERED: LACTATED RINGERS 1,000 ML IV ONE (12:04)
[2018-07-25] MEDS ORDERED: MAGNESIUM HYDROXIDE 2,400 MG/10 ML CUP PO PRN (12:30)
[2018-07-25] MEDS ORDERED: NALOXONE 0.4 MG/ML 1 ML VIAL IV PRN (12:30)
[2018-07-25] MEDS ORDERED: ONDANSETRON 4 MG/2 ML VIAL IVP PRN (12:30)
[2018-07-25] MEDS ORDERED: HYDROcodone/APAP 7.5-325MG 1 EACH TAB PO PRN (12:30)
[2018-07-25] MEDS ORDERED: HYDROmorphone 1 MG/ML 1 ML SYRINGE IVP PRN ×2 (12:30)
--- NOTE | 2018-07-25 12:58 | P.OP ---
Date of Procedure: 07/25/18 Preoperative Diagnosis: Right knee severe tricompartmental osteoarthrosis Postoperative Diagnosis: Same Procedure(s) Performed: Right total knee [id number] stabilized Implants: Depuy Attune size 7 cemented femoral component, size 6 cemented tibial component , 9 mm articular surface, 35 mm cemented patellar component. This is a posterior stabilized implant. Anesthesia: regional, local, spinal Surgeon: Lionel Simmons [employer] Specialist #1: José Miguel Sandoval Estimated Blood Loss (ml): 75 Pathology: other (Bone fragments) Condition: stable Disposition: PACU Indications for Procedure: The patient's a 63-year-old female who presents with progressive right knee pain secondary to osteoarthrosis despite conservative measures. A discussion of the risks and benefits of operative intervention versus continued conservative measures was made with patient. She opted to proceed with surgery. Specific risks of surgery to include infection, neurovascular injury, development of blood clots, possible component loosening, possible component failure and need for subsequent procedures was discussed. Informed consent was obtained. Operative Findings: As below Description of Procedure: The patient was brought to the operating room, and after induction of spinal anesthesia the right lower extremity was prepped and draped in a normal fashion. The tourniquet was inflated to 270 mmHg. A longitudinal incision extending 3 finger breaths above the superior pole of patella extending to the medial aspect of the tibial tubercle was then made. The skin and subcutaneous tissues were divided sharply. Electrocautery was used for hemostasis. A medial parapatellar arthrotomy is performed. The medial soft tissues to include the superficial and deep portions of the medial collateral ligament as well as the medial hamstring tendons were elevated subperiosteally. The posterior medial capsule was also elevated. The proximal medial tibial osteophytes were carefully removed. The patella was everted and a portion of the retropatellar fat pad was excised sharply. The knee was flexed. The anterior cruciate ligament was sacrificed. A starting hole was made in the distal femur 1 cm anterior to the posterior cruciate ligament origin. An intramedullary femoral guide was gently inserted planning on 5 valgus distal cut with 9 mm distal resection. The cutting block was pinned in place. The distal cut was then made. The posterior referencing sizing guide was utilized. I felt size 7 was most appropriate. 3 of external rotation was built into the system and was verified off the trans-epicondylar axis and the posterior condyles. The cutting block was pinned in place. The anterior, posterior, and chamfer cuts were then made. The bone fragments were removed. The box guide was placed for the intercondylar cut. A reciprocating saw was used. The bone was removed in one fragment. The trial size 7 posterior stabilized femoral component was placed and was fully seated. There is good anterior to posterior and medial to lateral fit. The distal peg holes were drilled. The trial component was removed. Attention was then paid towards preparing the proximal tibia. An extra medullary guide was utilized in line with the tibial shaft and second metatarsal distally. I planned on 3 posterior slope. I planned on 2 mm resection from the medial compartment. The cutting block was pinned in place per the proximal tibial cut was made in the bone removed in one fragment. The tibia sized most appropriate size 6. The remnants of the medial and lateral menisci were excised at the capsular junction with electrocautery. The trial femoral and tibial components were placed along with a 9 mm articular surface. I was able to obtain full flexion and extension with good stability with varus and valgus stress. After several flexion and extension cycles, the tibial rotation was marked with electrocautery in line with the medial one third of the tibial tubercle. Attention was then paid towards preparing the patella. A patella reamer was utilized taking this down to 14 mm of bone stock. A good flush cut was made. The patella sized most appropriately 35 mm. The peg holes were drilled. The trial components placed. I had good patellofemoral tracking with no hands technique. The trial components were then removed. The posterior osteophytes of the distal femur were carefully removed with a curved osteotome. The tibia was prepared in the appropriate rotation with appropriate drill and keel punch. The flexion and extension gaps were checked and felt to be symmetric. The posterior soft tissues were injected with ropivacaine. The bony surfaces were prepared with pulsatile lavage and dried. The tibial component was then cemented in placed and was fully seated. Excess cement was removed. The femoral component was cemented in placed and was fully seated. Excess cement was removed. The trial 9 mm articular surface was placed and the knee was put in full extension. The tele- component was cemented in placed and was fully seated. After the cement had sufficiently hardened, the knee was again taken through range of motion. Again I was able to obtain full flexion and extension with good stability with varus and valgus stress. The trial 9 mm talar surface was removed and the final one inserted. This was gently impacted. Care taken to avoid any soft tissue interposition. Pulsatile lavage was again utilized. The tourniquet was deflated with the proximal a 70 minutes total tourniquet time. The medial parapatellar arthrotomy closed with interrupted #2 Ethibond suture. The second dose of IV TXA was given. The subcu tissues were reapproximated interrupted 2- 0 Vicryl sutures. The skin was reapproximated with 3-0 subcuticular strata fix suture. Skin tape and adhesive was applied. A sterile dressing was applied area the patient was awoken from sedation and transferred to recovery room in good condition. Blood loss was estimated at 75 mL. No complications were incurred. Sponge and needle counts were correct at the end the case. Tino NAQVI assisted during the major components of the case to include exposure, bony resection and implantation.
--- NOTE | 2018-07-25 13:29 | XR ---
Limited right knee HISTORY: Status post right knee arthroplasty 2 views of the right knee Patient is status post right knee arthroplasty. There is anatomic alignment. Lucency present in the s oft tissues compatible with postop state. IMPRESSION: Orthopedic follow-up.
[2018-07-25] MEDS: traMADol 50 MG TAB PO SCH ×3 (14:42→22:50)
[2018-07-25] MEDS: metFORMIN 500 MG TAB PO SCH (18:01)
[2018-07-25 18:02] LABS: Glucose,Whole Blood 197 mg/dL (75-99)
[2018-07-25] MEDS: INSULIN ASPART 100 UNIT/ML 1 ML 10 ML VIAL SQ SCH ×2 (18:02→20:09)
[2018-07-25 19:56] LABS: Glucose,Whole Blood 249 mg/dL (75-99)
[2018-07-25] MEDS: ceFAZolin IN SWFI 2 GM/20 ML SYRINGE IVP SCH (20:09)
[2018-07-25] MEDS: FAMOTIDINE 20 MG TAB PO SCH (20:10)
[2018-07-25] MEDS ORDERED: SENNOSIDES-DOCUSATE SODIUM 1 EACH TAB PO SCH (21:00)
[2018-07-26 00:31] VITALS: RESP 16
[2018-07-26] MEDS: ceFAZolin IN SWFI 2 GM/20 ML SYRINGE IVP SCH (04:28)
[2018-07-26] MEDS: HYDROcodone/APAP 7.5-325MG 1 EACH TAB PO PRN ×2 (04:28→13:24)
[2018-07-26] MEDS ORDERED: LEVOTHYROXINE 100 MCG TAB PO SCH (06:30)
[2018-07-26 07:11] LABS: Glucose,Whole Blood 119 mg/dL (75-99)
[2018-07-26] MEDS ORDERED: GLIMEPIRIDE 4 MG TAB PO SCH (07:30)
[2018-07-26 07:43] VITALS: BP 108/58; PULSE 63; TEMP 97.8
[2018-07-26 07:47] LABS: Anisocytosis Slight; Basophils % (A) 1 %; Eosinophils % (A) 1 %; HCT 31.3 % (34.0-46.0); HGB 9.5 gm/dL (11.4-16.0); Hypochromasia Marked; Lymphocytes # (A) 0.9 k/uL (1.0-4.8); Lymphocytes % (A) 11 %; MCH 22.4 pg (25.0-35.0); MCHC 30.3 g/dL (31.0-37.0); MCV 74.1 fL (80.0-100.0); Mean Platelet Volume 6.7; Microcytosis Slight; Monocytes # (A) 0.3 k/uL (0-1.0); Monocytes % (A) 4 %; Neutrophils # (A) 6.7 k/uL (1.3-7.7); Neutrophils % (A) 83 %; Platelet Count 391 k/uL (150-450); RBC 4.23 m/uL (3.80-5.40); RDW 16.1 % (11.5-15.5)
[2018-07-26] MEDS: INSULIN ASPART 100 UNIT/ML 1 ML 10 ML VIAL SQ SCH ×2 (07:50→13:40)
[2018-07-26] MEDS: traMADol 50 MG TAB PO SCH ×2 (07:55→12:27)
[2018-07-26] MEDS: FAMOTIDINE 20 MG TAB PO SCH (07:55)
[2018-07-26] MEDS: metFORMIN 500 MG TAB PO SCH (07:55)
[2018-07-26] MEDS ORDERED: LOSARTAN 50 MG TAB PO SCH (09:00)
[2018-07-26] MEDS ORDERED: RIVAROXABAN 10 MG TAB PO SCH (09:00)
[2018-07-26] MEDS ORDERED: LORATADINE 10 MG TAB PO SCH (09:00)
[2018-07-26] MEDS ORDERED: HYDROCHLOROTHIAZIDE 12.5 MG CAP PO SCH (09:00)
--- NOTE | 2018-07-26 09:33 | P.PN ---
Progress Note - Text Progress Note Date: 07/26/18 The patient is status post 1 adductor canal catheter placement. The catheter was placed for postoperative pain control, status post total Right Knee arthroplasty. Ropivacaine 0.2% is infusing at 5 mLs per hour. The patient has no complaints of right lower extremity numbness or weakness. Patient's VAS score is 6 -10. Assessment: Patient's adductor canal catheter is in place and working appropriately. Plan: continue infusion and adjust it as needed.
--- NOTE | 2018-07-26 10:06 | P.CONS ---
History of Present Illness - Reason for Consult Consult date: 07/26/18 Medical Management Requesting physician: Lionel Simmons - Chief Complaint s/p right TKA - History of Present Illness 63-year-old female who underwent right total knee arthroplasty on 02/[address] Herring was consulted for medical management. The patient has a past medical history of diabetes, hypertension, hypothyroidism, and malignant melanoma of the left groin with lymph node dissection last year. The patient was also hospitalized in February 2018 for cellulitis of the left lower extremity. The patient was seen and examined at the bedside this morning with Dr. Herring. The patient is awake and alert. The patient states she has been up ambulating. She is having minimal pain this morning. She denies chest pain or pressure. Denies shortness of breath. Denies cough or congestion. Tolerating oral intake. Denies nausea or vomiting. Vital signs have been stable. She is afebrile. She is on room air with oxygen saturations greater than 92%. Patient reports she has been using her incentive spirometer. Hemoglobin this morning is 9.5. WBC 8.0. Review of Systems Those systems with pertinent positive or pertinent negative responses have been documented in the HPI Past Medical History Past Medical History: Cancer, Diabetes Mellitus, Hypertension, Pneumonia, Thyroid Disorder Additional Past Medical History / Comment(s): 07/05 Stage 3 melanoma left inner thigh History of Any Multi-Drug Resistant Organisms: None Reported Past Surgical History: Unable to Obtain, Appendectomy, Cholecystectomy, Hysterectomy, Orthopedic Surgery, Tonsillectomy Additional Past Surgical History / Comment(s): Lymphnode removal (L) groin. left knee and bilat hip replaced, sinus surgery Past Anesthesia/Blood Transfusion Reactions: No Reported Reaction, Postoperative Nausea & Vomiting (PONV) Past Psychological History: No Psychological Hx Reported Smoking Status: Never smoker Past Alcohol Use History: Occasional Past Drug Use History: Unable to Obtain - Past Family History Mother Family Medical History: Cancer Additional Family Medical History / Comment(s): of breast CA Father Family Medical History: Cancer Additional Family Medical History / Comment(s): from lung CA Medications and Allergies Home Medications Medication Instructions Recorded Confirmed Type Multivitamin/Iron/Folic Acid 1 tab PO DAILY 09/14/16 07/25/18 History [Centrum Complete Multivit Tab] metFORMIN HCL [Glucophage] 1,000 mg PO BID 09/14/16 07/25/18 History Loratadine [Claritin] 10 mg PO DAILY 07/03/17 07/25/18 History Biotin 10,000 mcg PO DAILY 02/25/18 07/25/18 History Cholecalciferol [Vitamin D3] 5,000 unit PO Q48H 02/25/18 07/25/18 History Cholecalciferol [Vitamin D3] 10,000 unit PO Q48H 02/25/18 07/25/18 History Ertugliflozin Pidolate [Steglatro] 15 mg PO DAILY 07/18/18 07/25/18 History Glimepiride [Amaryl] 4 mg PO AC-BRKFST 07/18/18 07/25/18 History Levothyroxine Sodium [Synthroid] 200 mcg PO DAILY 07/18/18 07/25/18 History Magnesium Gluconate [Magonate] 500 mg PO DAILY 07/18/18 07/25/18 History Olmesartan/Hydrochlorothiazide 1 tab PO DAILY 07/18/18 07/25/18 History [Benicar Hct 20-12.5 mg Tablet] Allergies Allergy/AdvReac Type Severity Reaction Status Date / Time cyanocobalamin (vitamin B12) Allergy Rash/Hives Verified 07/25/18 14:37 midazolam [From Versed] Allergy Rash/Hives Verified 07/25/18 14:37 Physical Exam Vitals: Vital Signs Temp Pulse Pulse Pulse Resp BP Pulse Ox 07/26/18 07:00 97.8 F 63 16 108/58 95 07/26/18 00:30 98.1 F 68 16 134/72 94 L 07/25/18 20:00 98.2 F 79 18 151/83 97 07/25/18 13:18 73 18 141/65 99 07/25/18 13:05 77 16 136/63 95 07/25/18 12:50 97.9 F 77 16 131/63 93 L 07/25/18 10:01 70 16 134/65 99 Intake and Output 07/25/18 07/26/18 07/26/18 22:59 06:59 14:59 Intake Total 175 Balance 175 Intake: Intake, IV Titration 175 Amount Lactated Ringers 1,000 ml 175 @ 50 mls/hr IV .Q20H [facility] Rx#:[id number] Other: Voiding Method Toilet Toilet # Voids 3 2 GENERAL: This is a 63-year-old female in no apparent distress at the time of examination. Pleasant and cooperative. HEENT: Head is atraumatic, normocephalic. Pupils are equal, round, and reactive to light. Sclerae anicteric. Conjunctivae are clear. Mucus membranes of the mouth are moist. Neck is supple. RESPIRATORY: Clear to auscultation. No wheezes, rales, or rhonchi. No use of accessory muscles. Patient maintaining oxygen saturation greater than 92%. No chest wall tenderness is noted on palpation or with deep breathing. CARDIOVASCULAR: Regular rate and rhythm. S1 and S2 noted. No JVD noted. No S3 or S4 noted. GASTROINTESTINAL: No distention noted. Abdomen soft and round. Normal active bowel sounds auscultated x 4 quadrants. No pain or tenderness noted upon palpation. INTEGUMENTARY: Dressing to right knee clean dry and intact. No cyanosis. No jaundice. No rashes noted. No cellulitis noted. EXTREMITIES: 2+ peripheral pulses. No calf tenderness noted. NEUROLOGIC: Cranial nerves II-XII intact. PSYCHIATRIC: Awake, alert, and oriented X 3. Appropriate affect. Intact judgement and insight. Results CBC & Chem 7: 07/26/18 07:13 Labs: Abnormal Lab Results - Last 24 Hours (Table) 07/25/18 07/25/18 07/26/18 Range/Units 17:51 19:44 07:10 Hgb (11.4-16.0) gm/dL Hct (34.0-46.0) % MCV (80.0-100.0) fL MCH (25.0-35.0) pg MCHC (31.0-37.0) g/dL RDW (11.5-15.5) % Lymphocytes # (1.0-4.8) k/uL POC Glucose (mg/dL) 197 H 249 H 119 H (75-99) mg/dL 07/26/18 Range/Units 07:13 Hgb 9.5 L (11.4-16.0) gm/dL Hct 31.3 L (34.0-46.0) % MCV 74.1 L (80.0-100.0) fL MCH 22.4 L (25.0-35.0) pg MCHC 30.3 L (31.0-37.0) g/dL RDW 16.1 H (11.5-15.5) % Lymphocytes # 0.9 L (1.0-4.8) k/uL POC Glucose (mg/dL) (75-99) mg/dL Assessment and Plan Plan: ASSESSMENT: Osteoarthritis, status post right total knee arthroplasty Diabetes mellitus, type II Hypertension Hypothyroidism History of malignant melanoma of the left groin with lymph node dissection History of cellulitis of left lower extremity requiring hospitalization, February 2018 Obesity: BMI 38.9 PLAN: Continue postoperative surgical care per orthopedics Activity as tolerated Pain control Incentive spirometer 10 times an hour PT/OT Home meds as appropriate Monitor labs GI prophylaxis: Pepcid 20mg PO BID DVT prophylaxis: Xarelto 10mg daily Monitor vital signs and address as appropriate Further recommendations pending patient's course Thank you for this consultation We will continue to follow with Jennifer during her hospitalization Jennifer is stable for discharge from a medical standpoint when she is deemed stable by attending/vomiting physician Nurse practitioner note has been reviewed by physician. Signing provider agrees with the documented findings, assessment, and plan of care.
[2018-07-26 11:45] LABS: Glucose,Whole Blood 125 mg/dL (75-99)
--- NOTE | 2018-07-26 12:27 | P.PN ---
Subjective Progress Note Date: 07/26/18 Principal diagnosis: Status post right total knee arthroplasty Patient is examined today at bedside, she is resting comfortably, her is present at bedside. She is ambulating well with therapy. Her pain is well- controlled. She denies any chest pain or shortness of breath. Objective - Vital Signs Vital signs: Vital Signs Temp 97.8 F 07/26/18 07:00 Pulse 63 07/26/18 07:00 Resp 16 07/26/18 07:00 BP 108/58 07/26/18 07:00 Pulse Ox 95 07/26/18 07:00 Intake & Output 07/25/18 07/26/18 07/26/18 18:59 06:59 18:59 Intake Total 1901 175 Output Total 75 Balance 1826 175 Weight 111 kg Intake: IV 1901 Intake, IV Titration 175 Amount Lactated Ringers 1,000 ml 175 @ 50 mls/hr IV .Q20H EVAN Rx#:[id number] Output: Estimated Blood Loss 75 Other: Voiding Method Toilet Toilet # Voids 2 - Exam Right lower extremity: Incision is clean, dry, and intact. The prineo tape is in good condition. There is minimal soft tissue swelling and ecchymosis surrounding the medial and lateral aspects of the incision. Calf is soft, no tenderness with palpation. Plantar flexion, dorsiflexion, EHL, FHL are intact. Sensory exam to light touch throughout the extremity is intact, dorsal pedis pulses 2+. - Labs CBC & Chem 7: 07/26/18 07:13 Labs: Abnormal Lab Results - Last 24 Hours (Table) 07/25/18 07/25/18 07/26/18 Range/Units 17:51 19:44 07:10 Hgb (11.4-16.0) gm/dL Hct (34.0-46.0) % MCV (80.0-100.0) fL MCH (25.0-35.0) pg MCHC (31.0-37.0) g/dL RDW (11.5-15.5) % Lymphocytes # (1.0-4.8) k/uL POC Glucose (mg/dL) 197 H 249 H 119 H (75-99) mg/dL 07/26/18 07/26/18 Range/Units 07:13 11:34 Hgb 9.5 L (11.4-16.0) gm/dL Hct 31.3 L (34.0-46.0) % MCV 74.1 L (80.0-100.0) fL MCH 22.4 L (25.0-35.0) pg MCHC 30.3 L (31.0-37.0) g/dL RDW 16.1 H (11.5-15.5) % Lymphocytes # 0.9 L (1.0-4.8) k/uL POC Glucose (mg/dL) 125 H (75-99) mg/dL Assessment and Plan Plan: Assessment: Postoperative day #1 status post right total knee arthroplasty Plan: Pain control, continue use current medication, we'll discharge on oral tramadol in [place] GI and DVT prophylaxis, Eliquis 2.5mg bid for 2 weeks Wound care instructions discussed Home therapy and nursing after discharge CPM at home Medical recommendations Discharge planning: Patient will be discharged home today Time with Patient: Less than 30
--- NOTE | 2018-07-26 12:31 | P.DS ---
Providers Date of admission: 07/25/18 08:43 Expected date of discharge: 07/26/18 Attending physician: Lionel Simmons Consults: 07/25/18 12:30 Consult Physician Routine Consulting Provider: Robbie Herring Reason/Comments: medical management Do you want consulting provider notified?: Yes Primary care physician: Robbie Herring Hospital Course: Date of admission: 07/25/2018 Date of discharge: 07/26/2018 Admission diagnosis: Status post right total knee arthroplasty Discharge diagnosis: Same Attending physician: Dr. Simmons Surgical procedures: Right total knee arthroplasty Brief history: Patient is a 63-year-old female with a history of progressive primary right knee osteoarthritis. At this point patient has failed conservative treatment measures and has opted to proceed with a elective right total knee arthroplasty. Hospital course: Details of patient's surgery can be found in operative report. Patient tolerated the procedure well and was subsequently transported to orthopedic floor. Patient's orthopeidc and medical care was provided daily. Patient had daily laboratory tests performed for evaluation of overall blood counts. Patient had daily physical therapy to include strengthening range of motion as well as education with walker ambulation. Patient had daily CPM usage as part of their physical therapy program. Patient was treated with Xarelto for their postoperative DVT prophylaxis during their inpatient stay. Patient was noted to have a relatively uneventful postoperative course. Patient reported satisfactory pain control with oral pain medications by postoperative day 0. Patient showed satisfactory progress with physical therapy. Patient moved steadily through the program and had no difficulty meeting the goals by postoperative day 1. Given patient's otherwise satisfactory course and having met physical therapy goals, plan is to discharge patient home on postoperative day 1. Discharge condition/disposition: Patient will be discharged home in stable condition. Discharge medications: Instructions are given on resumption of patient's normal daily medications per primary care recommendation, in addition patient will be prescribed [place] 7.5 mg/325 mg, tramadol 50 mg, Eliquis 2.5mg. Discharge instructions: 1. Wound care and infection precautions, keep incision dry and covered while showering, no lotions, creams, moisturizers. No soaking, tubs, pools, hottubs. Do not scrub over the incision. 2. Weight-bear as tolerated with walker / cane until follow-up. 3. Ice and elevate when necessary. Do not exceed 20 minutes per hour with ice pack. 4. Utilize compression sleeve until seen at first follow up appointment. 5. Visiting nursing care. 6. Home physical therapy including home CPM. 7. Pain meds and anticoagulants per prescription. 8. Pain medication has potential to cause constipation. Increase oral fluid and fiber intake. Contact primary care provider if you have not had a bowel movement within 48 hours after discharge 9. No anti-inflammatory medication until discussed at first post operative visit, this including Motrin, Aleve, Mobic, Diclofenac. 10. Follow up in office at 2 weeks postop with Tino Sandoval PA-C 11. Follow up with your primary care doctor 7-10 days after discharge. 12. Contact [facility] with any questions, . Procedures: Right total knee arthroplasty Patient Condition at Discharge: Good Plan - Discharge Summary Discharge Rx Participant: No New Discharge Prescriptions: New Apixaban [Eliquis] 2.5 mg PO BID #30 tab HYDROcodone/APAP 7.5-325MG [[place] 7.5] 1 - 2 each PO Q6HR PRN #56 tab PRN Reason: Pain traMADol HCl [Ultram] 50 mg PO Q6H PRN #28 tab PRN Reason: Pain Continue Multivitamin/Iron/Folic Acid [Centrum Complete Multivit Tab] 1 tab PO DAILY metFORMIN HCL [Glucophage] 1,000 mg PO BID Loratadine [Claritin] 10 mg PO DAILY Biotin 10,000 mcg PO DAILY Cholecalciferol [Vitamin D3] 5,000 unit PO Q48H Cholecalciferol [Vitamin D3] 10,000 unit PO Q48H Magnesium Gluconate [Magonate] 500 mg PO DAILY Glimepiride [Amaryl] 4 mg PO [facility] Olmesartan/Hydrochlorothiazide [Benicar Hct 20-12.5 mg Tablet] 1 tab PO DAILY Levothyroxine Sodium [Synthroid] 200 mcg PO DAILY Ertugliflozin Pidolate [Steglatro] 15 mg PO DAILY Discharge Medication List Multivitamin/Iron/Folic Acid [Centrum Complete Multivit Tab] 1 tab PO DAILY [History] metFORMIN HCL [Glucophage] 1,000 mg PO BID 09/14/16 [History] Loratadine [Claritin] 10 mg PO DAILY 07/03/17 [History] Biotin 10,000 mcg PO DAILY 02/25/18 [History] Cholecalciferol [Vitamin D3] 5,000 unit PO Q48H 02/25/18 [History] Cholecalciferol [Vitamin D3] 10,000 unit PO Q48H 02/25/18 [History] Ertugliflozin Pidolate [Steglatro] 15 mg PO DAILY 07/18/18 [History] Glimepiride [Amaryl] 4 mg PO [id number] 07/18/18 [History] Levothyroxine Sodium [Synthroid] 200 mcg PO DAILY 07/18/18 [History] Magnesium Gluconate [Magonate] 500 mg PO DAILY 07/18/18 [History] Olmesartan/Hydrochlorothiazide [Benicar Hct 20-12.5 mg Tablet] 1 tab PO DAILY [History] Apixaban [Eliquis] 2.5 mg PO BID #30 tab 07/26/18 [Rx] HYDROcodone/APAP 7.5-325MG [[place] 7.5] 1 - 2 each PO Q6HR PRN #56 tab 07/26/18 [ Rx] traMADol HCl [Ultram] 50 mg PO Q6H PRN #28 tab 07/26/18 [Rx] Follow up Appointment(s)/Referral(s): Robbie Herring DO [Primary Care Provider] - 2 Weeks [facility], [NON-STAFF] - José Miguel Sandoval PAC [PHYSICIAN FRONT END LOADER DRIVER] - 2 Weeks Activity/Diet/Wound Care/Special Instructions: Orthopedic Discharge Instructions: 1. Wound care and infection precautions, keep incision dry and covered while showering, no lotions, creams, moisturizers. No soaking, pools, hot tubs. Do not scrub over incision. 2. Weight-bear as tolerated with walker / cane until follow-up. 3. Ice and elevate when necessary. Do not exceed 20 minutes per hour with ice pack. 4. Utilize compression sleeve until seen at first follow up appointment. 5. Pain meds and anticoagulants per prescription. 6. Pain medication has potential to cause constipation. Increase oral fluid and fiber intake. Contact primary care provider if you have not had a bowel movement within 48 hours after discharge. 7. No anti-inflammatory medication until discussed at first post operative visit, this including Motrin, Aleve, Mobic, Diclofenac. 8. Follow up in office at 2 weeks postop with Tino Sandoval PA-C 9. Follow up with your primary care doctor 7-10 days after discharge. 10. Contact [facility] with any questions, . Discharge Disposition: HOME WITH HOME HEALTH SERVICES
[2018-07-26 15:00] LABS: Hemoglobin A1C 7.7 % (4.0-6.0)
== END 2018-07-26 15:41 | disposition home health service (06) | DRG 470 ==
LOC: 2ORMAIN 08:43 → 4SSUR 12:46
PROVIDERS: ADMIT Orthopaedic Surgery; ATTEND Orthopaedic Surgery
PROC: 0SRC0J9 Replacement of Right Knee Joint with Synthetic Substitute, Cemented, Open Approach (ICD-10-PCS; principal; 2018-07-25 10:40)
DX: M17.11 Unilateral primary osteoarthritis, right knee (principal); E03.9 Hypothyroidism, unspecified; E11.9 Type 2 diabetes mellitus without complications; E66.9 Obesity, unspecified; I10 Essential (primary) hypertension; Z68.39 Body mass index [BMI] 39.0-39.9, adult; Z79.84 Long term (current) use of oral hypoglycemic drugs; Z80.1 Family history of malignant neoplasm of trachea, bronchus and lung; Z80.3 Family history of malignant neoplasm of breast; Z82.49 Family history of ischemic heart disease and other diseases of the circulatory system; Z85.820 Personal history of malignant melanoma of skin; Z90.710 Acquired absence of both cervix and uterus; Z96.643 Presence of artificial hip joint, bilateral; Z96.652 Presence of left artificial knee joint; Z79.890 Hormone replacement therapy; Z79.899 Other long term (current) drug therapy; Z88.8 Allergy status to other drugs, medicaments and biological substances; Z90.49 Acquired absence of other specified parts of digestive tract
CPT/HCPCS: 83036; 85025; 88300

== ENCOUNTER → 2019-02-28 | Outpatient (CLI) | payer BC ==
[2019-02-28 11:08] LABS: African American GFR (CKD) >90 (>60 ml/min/1.73 sqM); Blood Urea Nitrogen 19 mg/dL (7-17)
--- NOTE | 2019-02-28 13:46 | CT ---
EXAMINATION TYPE: CT ChestAbdPelvis w con DATE OF EXAM: 02/28/2019 COMPARISON: Prior PET/CT dated 04/23/2017, prior chest CT dated 02/25/2018 HISTORY: Follow up skin cancer, melanoma, observe for metastases CT DLP: 1895 mGycm Automated exposure control for dose reduction was used. CONTRAST: CT scan of the chest, abdomen and pelvis is performed with Oral Contrast and with IV Contrast, patien t injected with 100 mL of Isovue 300. FINDINGS: Small hiatal hernia is noted. LUNGS: The lungs are grossly clear, there is no concerning parenchymal mass or nodule identified. T here is no pleural effusion or pneumothorax seen. The tracheobronchial tree is patent. MEDIASTINUM: There are no greater than 1 cm hilar or mediastinal lymph nodes. No pericardial effusi on is seen. AORTA: Ascending aorta is aneurysmal at 4.4 cm which is increased slightly in the interval. OTHER: No additional significant abnormality is seen. LIVER/GB: Liver shows large mid, low attenuation likely due to hepatic steatosis, patient is post cho lecystectomy. PANCREAS: No significant abnormality is seen. SPLEEN: No significant abnormality is seen. ADRENALS: No significant abnormality is seen. KIDNEYS: No significant abnormality is seen. REPRODUCTIVE ORGANS: Not seen BOWEL: Diverticular change is extensive associated with the sigmoid colon. FREE AIR: No Free Air visible. ASCITES: None seen. RETROPERITONEAL ADENOPATHY: No retroperitoneal adenopathy is seen. LYMPH NODES: No greater than 1 cm abdominal or pelvic lymph nodes are appreciated. URINARY BLADDER: No significant abnormality is seen. PELVIC ADENOPATHY: None visualized. OSSEOUS STRUCTURES: Postop changes are noted to both hips. Streak artifact may limit sensitivity wit hin the pelvis. IMPRESSION: Recurrence is not evident. Hepatic steatosis, hepatomegaly. Postop changes. Thoracic aort ic aneurysm. Diverticulosis.
== END | disposition home or self-care (01) ==
LOC: RADCTMAIN 09:35
PROVIDERS: ATTEND Internal Medicine Hematology & Oncology
DX: K76.0 Fatty (change of) liver, not elsewhere classified (principal); R16.0 Hepatomegaly, not elsewhere classified; K57.90 Diverticulosis of intestine, part unspecified, without perforation or abscess without bleeding; I71.2 Thoracic aortic aneurysm, without rupture; C43.9 Malignant melanoma of skin, unspecified; Z98.890 Other specified postprocedural states; Z88.8 Allergy status to other drugs, medicaments and biological substances
CPT/HCPCS: 82565; 84520; 71260; 74177; 36415; Q9967

== ENCOUNTER → 2019-07-18 | Day surgery (SDC) | payer BC ==
[2019-07-17 08:53] VITALS: BMI 42.9
[~2019-07-18] MED LIST changes: -ACETAMINOPHEN TAB 500 MG TAB PO ONE; -DEXAMETHASONE SOD PHOSPHATE 10 MG/ML 1 ML VIAL IV ONE; +LACTATED RINGERS 1,000 ML IV SCH; -MELOXICAM 7.5 MG TAB PO ONE; -ONDANSETRON 4 MG/2 ML VIAL IVP ONE; +PROPOFOL 10 MG/ML 20 ML VIAL IV ONE; -TRANEXAMIC ACID 1,000 MG in SODIUM CHLORIDE 0.9% 50 ML IVPB ONE; -ceFAZolin IN SWFI 2 GM/20 ML SYRINGE IVP ONE; -fentaNYL (PF) 50 MCG/ML 2 ML AMP IV PRN
[2019-07-18 08:08] VITALS: RESP 16; TEMP 97.7
[2019-07-18 08:10] LABS: Glucose,Whole Blood 123 mg/dL (75-99)
--- NOTE | 2019-07-18 08:47 | P.PCN ---
Date of Procedure: 07/18/19 Procedure(s) Performed: BRIEF HISTORY: Patient is a 64-year-old pleasant white female scheduled for an elective colonoscopy as a part of screening for colorectal neoplasia. PROCEDURE PERFORMED: Colonoscopy. PREOPERATIVE DIAGNOSIS: Screening for colon cancer. IV sedation per Anesthesia. PROCEDURE: After informed consent was obtained, the patient, was brought into the endoscopy unit. IV sedation was administered by Anesthesia under continuous monitoring. Digital rectal examination was normal. Initially the Olympus CF-160 flexible video colonoscope was then inserted in the rectum, gradually advanced into the cecum without any difficulty. Careful examination was performed as the scope was gradually being withdrawn. Ileocecal valve and the appendiceal orifice were visualized and appeared normal. Prep was excellent. Mucosa of the cecum, ascending colon, transverse colon, descending colon, sigmoid colon, and rectum appeared normal. Scattered sigmoidal diverticulosis. Retroflexion was performed in the rectum and no lesions were seen. The patient tolerated the procedure well. IMPRESSION: Normal-appearing colon from rectum to cecum with no evidence of colorectal neoplasia Scattered sigmoid diverticulosis . RECOMMENDATIONS: Findings of this examination were discussed with the patient as well as her family. She was advised to have a repeat screening colonoscopy in 10 years.
[2019-07-18 09:06] VITALS: BP 162/93; PULSE 63
== END ==
LOC: ORWHC2ENDO 07:30
PROVIDERS: ATTEND Internal Medicine Gastroenterology
DX: Z12.11 Encounter for screening for malignant neoplasm of colon (principal); K57.30 Diverticulosis of large intestine without perforation or abscess without bleeding; E11.9 Type 2 diabetes mellitus without complications; I10 Essential (primary) hypertension; I25.10 Atherosclerotic heart disease of native coronary artery without angina pectoris; E07.9 Disorder of thyroid, unspecified; E66.01 Morbid (severe) obesity due to excess calories; Z68.41 Body mass index [BMI] 40.0-44.9, adult; Z79.890 Hormone replacement therapy; Z88.4 Allergy status to anesthetic agent; Z88.8 Allergy status to other drugs, medicaments and biological substances; Z79.899 Other long term (current) drug therapy; Z79.84 Long term (current) use of oral hypoglycemic drugs; Z96.653 Presence of artificial knee joint, bilateral; Z96.643 Presence of artificial hip joint, bilateral; Z98.890 Other specified postprocedural states
CPT/HCPCS: G0121; J2704; 45378

== ENCOUNTER → 2019-08-29 | Outpatient (CLI) | payer BC ==
[2019-08-29 11:21] LABS: African American GFR (CKD) >90 (>60 ml/min/1.73 sqM); Blood Urea Nitrogen 15 mg/dL (7-17); Non-African American GFR(CKD) >90 (>60 ml/min/1.73 sqM)
--- NOTE | 2019-08-29 12:31 | CT ---
EXAMINATION TYPE: CT ChestAbdPelvis w con DATE OF EXAM: 08/29/2019 COMPARISON: 02/28/2019 HISTORY: Melanoma CT DLP: 2912.3 mGycm CONTRAST: CT scan of the chest, abdomen and pelvis is performed with Oral Contrast and with IV Contrast, patien t injected with 100 mL of Isovue 300. CT Chest: LUNGS: Calcified granuloma left lower lobe. The lungs are clear and free of infiltrate or atelectasis . No pulmonary nodule or mass is detected. No pleural effusion or CT evidence of interstitial lung disease. MEDIASTINUM: Thoracic aorta is of normal caliber. The heart is not enlarged. No evidence for media stinal mass or adenopathy. HILAR STRUCTURES: No evidence for mass. No hilar adenopathy is appreciated. OTHER: No significant abnormality. CONTRAST CT ABDOMEN AND PELVIS FINDINGS: LIVER/GB: The gallbladder is surgically absent. Mild hepatic steatosis. Hepatic granuloma noted. No s pace occupying hepatic lesion. Biliary tree is of normal caliber. PANCREAS: No inflammation. No distinct mass. SPLEEN: No splenic enlargement. No lesion seen. ADRENALS: No nodule. No thickening. KIDNEYS/BLADDER: No hydronephrosis. No nephrolithiasis. No disctinct renal mass. BOWEL: Normal appendix. Normal bowel caliber. No inflammation. GENITAL ORGANS: No gross abnormality. LYMPH NODES: No greater than 1cm abdominal or pelvic lymph nodes are appreciated. AORTA: No significant abnormality. OSSEOUS STRUCTURES: No significant abnormality is seen. OTHER: No significant additional abnormality is seen. IMPRESSION: 1. No evidence for metastatic disease.
== END | disposition home or self-care (01) ==
LOC: RADCTMAIN 10:23
PROVIDERS: ATTEND Internal Medicine Hematology & Oncology
DX: C43.9 Malignant melanoma of skin, unspecified (principal); Z88.4 Allergy status to anesthetic agent; Z88.8 Allergy status to other drugs, medicaments and biological substances
CPT/HCPCS: 36415; 71260; 74177; 82565; 84520

== ENCOUNTER → 2019-09-08 | Outpatient (CLI) | payer BC ==
--- NOTE | 2019-09-14 10:04 | MM ---
Reason for exam: screening (asymptomatic). Last mammogram was performed 2 years and 1 month ago. History: Patient is postmenopausal and has history of high-risk lesion on a previous biopsy at age 61. Family history of breast cancer in mother at age 50. High risk US breast aspiration single LT of the left breast, February 19, 2016. High risk US biopsy breast VAD LT of the left breast, February 19, 2016. Left U/S Cancelled VAD Biopsy of both breasts, June 21, 2012. Benign US right core biopsy of the right breast, November 27, 2007. Benign cyst aspiration of the left breast, November 25, 2004. Benign ultrasound-guided cyst aspiration of the left breast, November 25, 2004. Benign ultrasound-guided cyst aspiration of the left breast, November 25, 2004. Benign ultrasound-guided cyst aspiration of the left breast, November 25, 2004. Excisional biopsy of the left breast, 2004. Physical Findings: A clinical breast exam by your physician is recommended on an annual basis and results should be correlated with mammographic findings. MG 3D Screening Mammo W/Cad Bilateral CC and MLO view(s) were taken. Prior study comparison: September 01, 2018, mammogram. August 23, 2017, bilateral MG 3d screening mammo w/cad. July 29, 2016, bilateral MG 3d diag mammo w/cad STEFAN. The breast tissue is heterogeneously dense. This may lower the sensitivity of mammography. Previous mammotome biopsy in the right breast. Post excisional scar redemonstrated on the left. Increasing asymmetric density along the anterior margin of the excision only on the CC view. ASSESSMENT: Incomplete: need additional imaging evaluation, BI-RAD 0 RECOMMENDATION: Special view mammogram of the left breast. If lesion persists on supplemental views, image directed ultrasound is recommended. [facility] will attempt to contact patient to return for supplemental views and ultrasound if indicated.
== END | disposition home or self-care (01) ==
LOC: RADMAMWWP 10:39
PROVIDERS: ATTEND Obstetrics & Gynecology
DX: Z12.31 Encounter for screening mammogram for malignant neoplasm of breast (principal)
CPT/HCPCS: 77063; 77067

== ENCOUNTER → 2019-10-02 | Outpatient (CLI) | payer BC ==
--- NOTE | 2019-10-02 11:23 | USB ---
Reason for exam: additional evaluation requested from abnormal screening. History: Patient is postmenopausal and has history of high-risk lesion on a previous biopsy at age 61. Family history of breast cancer in mother at age 50. High risk US breast aspiration single LT of the left breast, February 19, 2016. High risk US biopsy breast VAD LT of the left breast, February 19, 2016. Left U/S Cancelled VAD Biopsy of both breasts, June 21, 2012. Benign US right core biopsy of the right breast, November 27, 2007. Benign cyst aspiration of the left breast, November 25, 2004. Benign ultrasound-guided cyst aspiration of the left breast, November 25, 2004. Benign ultrasound-guided cyst aspiration of the left breast, November 25, 2004. Benign ultrasound-guided cyst aspiration of the left breast, November 25, 2004. Excisional biopsy of the left breast, 2004. Physical Findings: Nurse did not find any significant physical abnormalities on exam. US Breast Workup Limited LT Left limited breast ultrasound including focal area of concern, retroareolar and axilla demonstrates no cystic or solid lesion seen. Excisional site is marked by clips at the 12 o'clock position in zone B/C. There is no vascularity seen. On mammogram the contour anteriorly is similar to XCCL of 09/02/17. These results were verbally communicated with the patient and result sheet given to the patient on 10/02/19. ASSESSMENT: Benign, BI-RAD 2 RECOMMENDATION: Return to routine screening mammogram schedule for both breasts.
== END | disposition home or self-care (01) ==
LOC: RADMAMWWP 10:08
PROVIDERS: ATTEND Obstetrics & Gynecology
DX: R92.8 Other abnormal and inconclusive findings on diagnostic imaging of breast (principal)

== ENCOUNTER → 2020-08-26 | Outpatient (CLI) | payer BC ==
[2020-08-26 11:11] LABS: African American GFR (CKD) >90 (>60 ml/min/1.73 sqM); Blood Urea Nitrogen 14 mg/dL (7-17); Non-African American GFR(CKD) >90 (>60 ml/min/1.73 sqM)
--- NOTE | 2020-08-26 13:30 | CT ---
EXAMINATION TYPE: CT ChestAbdPelvis w con DATE OF EXAM: 08/26/2020 COMPARISON: CT August 29, 2019 and older CTs. PET/CT April 23, 2017. HISTORY: follow up melanoma recently diagnosed left groin in 2017 CT DLP: 2390 mGycm. Automated Exposure Control for Dose Reduction was Utilized. CONTRAST: CT scan of the thorax, abdomen and pelvis is performed with oral and with IV Contrast, patient inject ed with 100 mL of Isovue 300. FINDINGS: LUNGS: Mild dependent atelectatic changes both lungs. No pleural effusion or pneumothorax seen bilate rally. Incidental small posterior basilar calcified granuloma image 44 redemonstrated. MEDIASTINUM: There are no greater than 1 cm hilar or mediastinal lymph nodes. No pericardial effusi on is seen. Heart size stable and upper limits of normal. Ascending aorta measures up to 4.0 cm in d iameter stable from prior studies. OTHER: Surgical changes left breast redemonstrated. LIVER/GB: Liver is diffusely low dense consistent with diffuse fatty infiltration. Cholecystectomy cl ips. PANCREAS: No significant abnormality is seen. SPLEEN: No significant abnormality is seen. ADRENALS: No significant abnormality is seen. KIDNEYS: Symmetrical cortical medullary uptake and excretion without concerning renal mass or hydrone phrosis seen bilaterally. BOWEL: No significant abnormality is seen. GENITAL ORGANS: Uterus suspected surgically absent with surgical clip in pelvis. LYMPH NODES: No new or enlarging greater than 1cm abdominal or pelvic lymph nodes are appreciated. OSSEOUS STRUCTURES: Metallic artifact from bilateral hip arthroplasty causes streak artifact limiting evaluation of pelvic structures. Mild multilevel spurring. OTHER: Stable scar tissue and surgical changes left groin. No suspicious new or enlarging soft tissue mass. IMPRESSION: Scar tissue left groin region. No new suspicious mass or adenopathy to suggest neoplasti c recurrence.
== END | disposition home or self-care (01) ==
LOC: RADCTMAIN 10:29
PROVIDERS: ATTEND Internal Medicine Hematology & Oncology
DX: C43.9 Malignant melanoma of skin, unspecified (principal)
CPT/HCPCS: 82565; 84520; 71260; 74177; 36415; Q9967

== ENCOUNTER → 2021-01-19 | Outpatient (CLI) | payer BC ==
--- NOTE | 2021-01-20 11:28 | MM ---
Reason for exam: screening (asymptomatic). Last mammogram was performed 1 year and 4 months ago. History: Patient is postmenopausal and has history of high-risk lesion on a previous biopsy at age 61. Family history of breast cancer in mother at age 50. High risk US breast aspiration single LT of the left breast, February 19, 2016. High risk US biopsy breast VAD LT of the left breast, February 19, 2016. Left U/S Cancelled VAD Biopsy of both breasts, June 21, 2012. Benign US right core biopsy of the right breast, November 27, 2007. Benign cyst aspiration of the left breast, November 25, 2004. Benign ultrasound-guided cyst aspiration of the left breast, November 25, 2004. Benign ultrasound-guided cyst aspiration of the left breast, November 25, 2004. Benign ultrasound-guided cyst aspiration of the left breast, November 25, 2004. Excisional biopsy of the left breast, 2004. Physical Findings: A clinical breast exam by your physician is recommended on an annual basis and results should be correlated with mammographic findings. MG 3D Screening Mammo W/Cad Bilateral CC and MLO view(s) were taken. Prior study comparison: September 08, 2019, bilateral MG 3d screening mammo w/cad. September 01, 2018, mammogram. The breast tissue is heterogeneously dense. This may lower the sensitivity of mammography. There is no discrete abnormality. No significant changes when compared with prior studies. ASSESSMENT: Negative, BI-RAD 1 RECOMMENDATION: Routine screening mammogram of both breasts in 1 year.
== END | disposition home or self-care (01) ==
LOC: RADMAMWWP 08:59
PROVIDERS: ATTEND Obstetrics & Gynecology
DX: Z12.31 Encounter for screening mammogram for malignant neoplasm of breast (principal); Z80.3 Family history of malignant neoplasm of breast; Z78.0 Asymptomatic menopausal state
CPT/HCPCS: 77063; 77067

== ENCOUNTER → 2021-11-04 | Outpatient (CLI) | payer MEDICARE ==
--- NOTE | 2021-11-04 23:59 | CT ---
EXAMINATION TYPE: CT Chest Abd Pelvis w con DATE OF EXAM: 11/04/2021 COMPARISON: CT dated 08/26/2020 HISTORY: Melanoma, lymph node left thigh-NOT on skin CT DLP: 2854.60 mGycm Automated exposure control for dose reduction was used. CONTRAST: CT scan of the chest, abdomen and pelvis is performed with Oral Contrast and with IV Contrast, patien t injected with 100 ml mL of Isovue 300. FINDINGS: Chest: Stable 4 mm nodule at the lateral aspect of the right upper lung lobe (image #16, series 4). Stable m illimetric calcified granuloma at the posterior aspect of the left lower lobe. No new suspicious or p rogressive lung lesion. No pleural or pericardial effusion. Patent central airways. No gross cardiomegaly. Scattered arterial atherosclerotic calcifications. No progressive lymphadenopathy in the chest. Degenerative changes of the thoracic spine. No aggressive b one lesion. Abdomen and pelvis: Hepatic steatosis. With this limitation, no definite hepatic focal lesion identified. Previous cholec ystectomy. Unremarkable spleen and adrenals. Atrophic pancreas. Transverse lie of the right kidney, o therwise unremarkable kidneys. Scattered arterial atherosclerotic calcifications. The urinary bladder and pelvic organs are obscured by the bilateral hip prosthesis. Unremarkable stomach, duodenum and small bowel. Colonic diverticulosis most evident involving the sig moid colon. Stable left inguinal surgical scar. No progressive lymphadenopathy or sizable ascites. No gross adnexal mass. Bilateral total hip arthroplasty. Degenerative changes of the lumbar spine and s acroiliac joints with severe L4-5 and L5-S1 facet osteoarthropathy. No aggressive bone lesion. IMPRESSION: Stable condition. No evidence of metastatic disease seen in the chest, abdomen or the pelvis. Inciden kacey findings as described above.
== END | disposition home or self-care (01) ==
LOC: RADCTMAIN 10:42
PROVIDERS: ATTEND Internal Medicine Hematology & Oncology
DX: C43.9 Malignant melanoma of skin, unspecified (principal)
CPT/HCPCS: 82565; 84520; 71260; 74177; 36415; Q9967

== ENCOUNTER → 2022-02-10 | Outpatient (CLI) | payer MEDICARE ==
--- NOTE | 2022-02-11 14:49 | MM ---
Reason for Exam: Screening (asymptomatic). Last screening mammogram was performed 12 month(s) ago. Patient History: Menarche at age 12. First Full-Term at age 23. Hysterectomy at age 42. Postmenopausal. 2004, Excisional Biopsy on the Left side. 02/19/2016, High risk Cyst Aspiration on the left side. 02/19/2016, High risk Core Biopsy on the left side. 11/27/2007, Benign Core Biopsy on the right side. 11/25/2004, Benign Cyst Aspiration on the left side. 11/25/2004, Benign Ultrasound-Guided Cyst Aspiration on the left side. 11/25/2004, Benign Ultrasound-Guided Cyst Aspiration on the left side. 11/25/2004, Benign Ultrasound-Guided Cyst Aspiration on the left side. 06/21/2012, Bilateral Left U/S Cancelled VAD Biopsy. Mother had breast cancer, age 50. Risk Values: Indira 5 year model risk: 5.2%. NCI Lifetime model risk: 17.8%. Film Views: Bilateral CC views were taken. Bilateral MLO views were taken. Prior Study Comparison: 09/01/2018 Screening Mammogram, Unknown. 09/08/2019 Bilateral Screening Mammogram, [facility]. 01/19/2021 Bilateral Screening Mammogram, [facility]. Tissue Density: There are scattered fibroglandular densities. Findings: Analyzed By CAD. There is a circumscribed mass within the upper outer left breast measuring approximately 7 mm and approximately 14 to 15 cm from the nipple. This is an interval change. Post biopsy changes are present in the upper outer left breast. No suspicious microcalcification. Overall Assessment: Incomplete: need additional imaging evaluation, BI-RAD 0 Management: Diagnostic Breast Ultrasound of the right breast. A clinical breast exam by your physician is recommended on an annual basis and results should be correlated with mammographic findings. Electronically signed and approved by: Adrian Nicole M.D. Radiologis
== END | disposition home or self-care (01) ==
LOC: RADMAMWWP 08:58
PROVIDERS: ATTEND Family Medicine
DX: Z12.31 Encounter for screening mammogram for malignant neoplasm of breast (principal); Z78.0 Asymptomatic menopausal state; Z80.3 Family history of malignant neoplasm of breast
CPT/HCPCS: 77063; 77067

== ENCOUNTER → 2022-02-26 | Outpatient (CLI) | payer MEDICARE ==
--- NOTE | 2022-02-26 10:27 | USB ---
Reason for Exam: Additional evaluation requested from abnormal screening. Patient History: Menarche at age 12. First Full-Term at age 23. Hysterectomy at age 42. Postmenopausal. 2004, Excisional Biopsy on the Left side. 02/19/2016, High risk Cyst Aspiration on the left side. 02/19/2016, High risk Core Biopsy on the left side. 11/27/2007, Benign Core Biopsy on the right side. 11/25/2004, Benign Cyst Aspiration on the left side. 11/25/2004, Benign Ultrasound-Guided Cyst Aspiration on the left side. 11/25/2004, Benign Ultrasound-Guided Cyst Aspiration on the left side. 11/25/2004, Benign Ultrasound-Guided Cyst Aspiration on the left side. 06/21/2012, Bilateral Left U/S Cancelled VAD Biopsy. Mother had breast cancer, age 50. Risk Values: Indira 5 year model risk: 5.2%. NCI Lifetime model risk: 17.8%. Technique: Method: Targeted. Prior Study Comparison: 09/08/2019 Bilateral Screening Mammogram, [facility]. 01/19/2021 Bilateral Screening Mammogram, [facility]. 02/10/2022 Bilateral MG 3D screening mammo w/cad, [facility]. Findings: The upper outer quadrant of the left breast, the axilla of the left breast and the retroareolar of the left breast were scanned. There is a small 0.5 x 0.4 x 0.5 cm hypoechoic area 2:00 position 14 cm from the nipple. This appears to have good through transmission. However, this is too small to classify with some internal echoes likely related to technical factors. Short-term follow-up is recommended. Overall Assessment: Probably benign, BI-RAD 3 Management: Diagnostic Breast Ultrasound of the left breast in 3 months. A clinical breast exam by your physician is recommended on an annual basis and results should be correlated with mammographic findings. Electronically signed and approved by: Hunter Temple D.O. Radiologis
== END | disposition home or self-care (01) ==
LOC: RADUSWWP 08:52
PROVIDERS: ATTEND Family Medicine
DX: R92.8 Other abnormal and inconclusive findings on diagnostic imaging of breast (principal); Z80.3 Family history of malignant neoplasm of breast; Z78.0 Asymptomatic menopausal state

== ENCOUNTER → 2022-06-17 | Outpatient (CLI) | payer MEDICARE ==
--- NOTE | 2022-06-17 09:05 | USB ---
Reason for Exam: Follow-up at short interval from prior study. Patient History: Menarche at age 12. First Full-Term at age 23. Hysterectomy at age 42. Postmenopausal. 2004, Excisional Biopsy on the Left side. 02/19/2016, High risk Cyst Aspiration on the left side. 02/19/2016, High risk Core Biopsy on the left side. 11/27/2007, Benign Core Biopsy on the right side. 11/25/2004, Benign Cyst Aspiration on the left side. 11/25/2004, Benign Ultrasound-Guided Cyst Aspiration on the left side. 11/25/2004, Benign Ultrasound-Guided Cyst Aspiration on the left side. 11/25/2004, Benign Ultrasound-Guided Cyst Aspiration on the left side. 06/21/2012, Bilateral Left U/S Cancelled VAD Biopsy. Mother had breast cancer, age 50. Risk Values: Indira 5 year model risk: 5.2%. NCI Lifetime model risk: 17.8%. Technique: Method: Targeted. Patient Position: Supine. Prior Study Comparison: 09/08/2019 Bilateral Screening Mammogram, [facility]. 01/19/2021 Bilateral Screening Mammogram, [facility]. 02/10/2022 Bilateral MG 3D screening mammo w/cad, [facility]. Findings: The upper outer quadrant of the left breast, the axilla of the left breast and the retroareolar of the left breast were scanned. There is a simple appearing cyst smooth borders and through transmission and nearly anechoic. This measures 0.5 x 0.4 x 0.7 cm which appears stable. Overall Assessment: Benign, BI-RAD 2 Management: Screening Mammogram of both breasts in 6 months. A clinical breast exam by your physician is recommended on an annual basis and results should be correlated with mammographic findings. Electronically signed and approved by: Hunter Temple D.O. Radiologis
== END | disposition home or self-care (01) ==
LOC: RADUSWWP 08:20
PROVIDERS: ATTEND Family Medicine
DX: R92.8 Other abnormal and inconclusive findings on diagnostic imaging of breast (principal); Z78.0 Asymptomatic menopausal state; Z80.3 Family history of malignant neoplasm of breast

== ENCOUNTER → 2022-12-01 | Outpatient (CLI) | payer MEDICARE ==
--- NOTE | 2022-12-01 16:00 | USB ---
Reason for Exam: Follow-up at short interval from prior study. Patient History: Menarche at age 12. First Full-Term at age 23. Hysterectomy at age 42. Postmenopausal. 2004, Excisional Biopsy on the Left side. 02/19/2016, High risk Cyst Aspiration on the left side. 02/19/2016, High risk Core Biopsy on the left side. 11/27/2007, Benign Core Biopsy on the right side. 11/25/2004, Benign Cyst Aspiration on the left side. 11/25/2004, Benign Ultrasound-Guided Cyst Aspiration on the left side. 11/25/2004, Benign Ultrasound-Guided Cyst Aspiration on the left side. 11/25/2004, Benign Ultrasound-Guided Cyst Aspiration on the left side. 06/21/2012, Bilateral Left U/S Cancelled VAD Biopsy. Mother had breast cancer, age 50. Risk Values: Indira 5 year model risk: 5.2%. NCI Lifetime model risk: 17.8%. Technique: Method: Targeted. Prior Study Comparison: 09/08/2019 Bilateral Screening Mammogram, [facility]. 01/19/2021 Bilateral Screening Mammogram, [facility]. 02/10/2022 Bilateral MG 3D screening mammo w/cad, [facility]. Findings: The upper outer quadrant of the left breast, the axilla of the left breast and the retroareolar of the left breast were scanned. Targeted ultrasound upper outer quadrant left breast 12:00 to 3:00 including the subareolar region and axilla. Redemonstrated tiny hypoechoic area at the 2:00 position, 14 cm from the nipple. This currently measures 4 x 4 x 3 mm. Previously measured 7 x 5 x 4 mm. Likely a tiny cyst containing some debris. No other solid or cystic lesion or axillary lymphadenopathy. Probable mammographic correlate. Reassess the mammographic appearance at the time of the patient's annual exam in 2 months. Overall Assessment: Probably benign, BI-RAD 3 Management: Diagnostic Mammogram of both breasts in 2 months. Total one-year mammographic follow-up upper-outer quadrant left breast nodularity. Annual exam of the right breast. 1. Note the patient's very high Indira score and overall lifetime risk for the development of breast cancer. Consider specialist referral to assess eligibility for a risk reducing agent. In addition, the patient may qualify for future screening with alternating mammogram and breast MRI. 2. Patient should continue monthly self breast exams. A clinical breast exam by your physician is recommended on an annual basis. 3. This exam should not preclude additional follow-up of suspicious palpable abnormalities. Electronically signed and approved by: Enrique Hernandez M.D. Radiologist
== END | disposition home or self-care (01) ==
LOC: RADUSWWP 14:44
PROVIDERS: ATTEND Family Medicine
DX: R92.8 Other abnormal and inconclusive findings on diagnostic imaging of breast (principal); Z78.0 Asymptomatic menopausal state; Z80.3 Family history of malignant neoplasm of breast

== ENCOUNTER → 2022-12-29 | Outpatient (CLI) | payer MEDICARE ==
[2022-12-29 09:33] LABS: African American GFR (CKD) >90 (>60 ml/min/1.73 sqM); Blood Urea Nitrogen 15 mg/dL (7-17); Non-African American GFR(CKD) >90 (>60 ml/min/1.73 sqM)
--- NOTE | 2022-12-29 11:43 | CT ---
EXAMINATION TYPE: CT ChestAbdPelvis w con CT DLP: 2713.7 mGycm, Automated exposure control for dose reduction was used. DATE OF EXAM: 12/29/2022 11:16 AM COMPARISON: Multiple CTs 11/04/2021 CLINICAL INDICATION:Female, 67 years old with history of C43.9 MELANOMA, f/u melanoma Technique: Multiple axial images of the chest, abdomen, and pelvis were obtained. Two-dimensional cor onal and sagittal reconstructions were obtained. Contrast used:70cc mL of Isovue 300 with IV Contrast, Oral contrast used: with Oral Contrast Findings: CHEST: LUNGS/ PLEURA: No focal consolidation, pneumothorax or pleural effusion. No new or enlarging pulmonar y nodules identified. AIRWAY: Patent and unremarkable. HEART: Size within normal limits. MEDIASTINUM: No gross evidence of adenopathy. VASCULATURE: No aortic aneurysm. MUSCULOSKELETAL: No acute osseous abnormalities. SOFT TISSUES/LYMPH NODES: Unremarkable. LOWER NECK: No significant findings. ABDOMEN: ABDOMEN LIVER: Diffusely hypoattenuating parenchyma compatible with hepatic steatosis. GALLBLADDER AND BILE DUCTS: The gallbladder is surgically absent. PANCREAS: Unremarkable. SPLEEN: Unremarkable. ADRENAL GLANDS: Unremarkable. KIDNEYS AND URETERS: No evidence of hydronephrosis or renal calculus. The ureters are unremarkable. PELVIS BLADDER: Unremarkable REPRODUCTIVE: Unremarkable. ABDOMEN & PELVIS STOMACH AND BOWEL: Scattered diverticula are noted throughout the colon. No evidence of bowel obstruc tion. PERITONEUM: No evidence of pneumoperitoneum or free fluid. VASCULATURE: Mild atherosclerotic calcifications are present throughout the abdominal aorta and its b ranches. MUSCULOSKELETAL: No acute osseous abnormalities. Mild disc degeneration changes are present throughou t the thoracolumbar spine. Bilateral hip arthroplasty changes. No hardware is intact. LYMPH NODES: No gross evidence for lymphadenopathy. SOFT TISSUE/ABDOMINAL WALL: Unremarkable IMPRESSION: No evidence for lymphadenopathy. No acute thoracic or abdominal process.
== END | disposition home or self-care (01) ==
LOC: RADCTMAIN 08:46
PROVIDERS: ATTEND Internal Medicine Hematology & Oncology
DX: C43.9 Malignant melanoma of skin, unspecified (principal); M13.0 Polyarthritis, unspecified; E03.9 Hypothyroidism, unspecified; I89.0 Lymphedema, not elsewhere classified
CPT/HCPCS: 82565; 84520; 71260; 74177; 36415; Q9967

== ENCOUNTER → 2023-02-08 | Outpatient (CLI) | payer MEDICARE ==
--- NOTE | 2023-02-08 15:23 | MM ---
Reason for Exam: Follow-up at short interval from prior study. Last screening mammogram was performed 12 month(s) ago. Patient History: Menarche at age 12. First Full-Term at age 23. Hysterectomy at age 42. Postmenopausal. Patient has history of breast feeding. 2004, Excisional Biopsy on the Left side. 02/19/2016, High risk Cyst Aspiration on the left side. 02/19/2016, High risk Core Biopsy on the left side. 11/27/2007, Benign Core Biopsy on the right side. 11/25/2004, Benign Cyst Aspiration on the left side. 11/25/2004, Benign Ultrasound-Guided Cyst Aspiration on the left side. 11/25/2004, Benign Ultrasound-Guided Cyst Aspiration on the left side. 11/25/2004, Benign Ultrasound-Guided Cyst Aspiration on the left side. 06/21/2012, Bilateral Left U/S Cancelled VAD Biopsy. Mother had breast cancer, age 50. Risk Values: Indira 5 year model risk: 5.3%. NCI Lifetime model risk: 17.2%. Prior Study Comparison: 08/23/2017 Bilateral Screening Mammogram, [facility]. 09/08/2019 Bilateral Screening Mammogram, [facility]. 01/19/2021 Bilateral Screening Mammogram, [facility]. 02/10/2022 Bilateral MG 3D screening mammo w/cad, [facility]. 12/01/2022 Left US breast limited LT, [facility]. Tissue Density: There are scattered fibroglandular densities. Findings: Analyzed By CAD. There is a bilaterally symmetric density shows stable configuration for 1 year. Postexcisional changes on the left. Microclip laterally on the right from prior biopsy. No significant change from prior exams. An additional one-year follow-up is recommended. Overall Assessment: Probably benign, BI-RAD 3 Management: Diagnostic Mammogram of both breasts in 1 year. Total two-year follow-up upper-outer quadrant left breast asymmetries. Results were given to the patient verbally at the time of exam. Patient should continue monthly self-breast exams. A clinical breast exam by your physician is recommended on an annual basis. This exam should not preclude additional follow-up of suspicious palpable abnormalities. Note on Indira scores and lifetime risk: 1. A Indira score greater than 3% is considered moderate risk. If this is the case, consider specialist referral to assess eligibility for a risk reducing agent. 2. If overall lifetime risk for the development of breast cancer is 20% or higher, the patient may qualify for future screening with alternating mammogram and breast MRI. Electronically signed and approved by: Enrique Hernandez M.D. Radiologist
== END | disposition home or self-care (01) ==
LOC: RADMAMWWP 14:44
PROVIDERS: ATTEND Family Medicine
DX: N63.20 Unspecified lump in the left breast, unspecified quadrant (principal); N64.4 Mastodynia; Z78.0 Asymptomatic menopausal state; Z80.3 Family history of malignant neoplasm of breast
CPT/HCPCS: 77066; G0279; 77062

== ENCOUNTER → 2023-06-03 | Outpatient (CLI) | payer MEDICARE ==
--- NOTE | 2023-06-05 11:43 | PE ---
EXAMINATION TYPE: PET CT fusion skull to thigh DATE OF EXAM: 06/03/2023 CLINICAL INDICATION:Female, 68 years old with history of C43.8; TECHNIQUE: Following the intravenous administration of 11.6 mCi of F-18 FDG, whole body images are performed from the skull base to the midthigh. Images are reviewed on the computer in the coronal, a xial, and sagittal planes. Reconstructed rotating images are created on independent workstation and reviewed on the computer. A non-contrast CT is performed in conjunction with the PET scan. Glucose level 156 mg/dL CT DLP: 795.59 mGycm, Automated exposure control for dose reduction was used. COMPARISON: CT 12/29/2022, 11/04/2021., PET/CT 04/23/2017, FINDINGS: Mediastinal SUV mean is 2.3. Hepatic parenchyma SUV mean is 3.2. SKULL BASE AND NECK: No suspicious radiotracer activity. CHEST, MEDIASTINUM, AND HILAR REGION: No suspicious radiotracer activity. ABDOMEN AND PELVIS: No suspicious radiotracer activity. MUSCULOSKELETAL/LOWER EXTREMITIES: No suspicious radiotracer activity. OTHER CT: Mild mucosal thickening of the right maxillary sinus. Bilaterally aphakia. Carotid bifurcat ion atherosclerosis. The heart demonstrates mild enlargement. Small hiatal hernia. Calcified granulom a in the posterior aspect of the left lower lobe superior segment. The gallbladder surgically absent. Scattered colonic diverticula. Bilateral hip arthroplasties which limits evaluation the pelvis. Hard calvert appears intact. Bilateral knee arthroplasty changes hardware appears intact. IMPRESSION: No suspicious radiotracer activity.
== END | disposition home or self-care (01) ==
LOC: RADPETMAIN 09:15
PROVIDERS: ATTEND Internal Medicine Hematology & Oncology
DX: C43.8 Malignant melanoma of overlapping sites of skin (principal)
CPT/HCPCS: 78815; A9552

== ENCOUNTER → 2024-07-03 | Outpatient (CLI) | payer MEDICARE ==
[2024-07-03 14:19] LABS: African American GFR (CKD) >90 (>60 ml/min/1.73 sqM); Blood Urea Nitrogen 19 mg/dL (7-17); Non-African American GFR(CKD) 84 (>60 ml/min/1.73 sqM)
--- NOTE | 2024-07-03 16:59 | CT ---
EXAMINATION TYPE: CT ChestAbdPelvis w con CT DLP: 2315.5 mGycm, Automated exposure control for dose reduction was used. DATE OF EXAM: 07/03/2024 3:42 PM COMPARISON: PET CT 06/03/2023, CT Chest Abdomen Pelvis 12/29/2022, 11/04/2021 CLINICAL INDICATION:Female, 69 years old with history of C43.9 MELANOMA; PH, melanoma Technique: Multiple axial images of the chest, abdomen, and pelvis were obtained following the intrav enous administration of 100 mL Isovue-300. Oral contrast was administered. Two-dimensional coronal an d sagittal reconstructions were obtained. Findings: CHEST: LUNGS/ PLEURA: No focal consolidation, pneumothorax or pleural effusion. No new or enlarging pulmonar y nodules identified. Calcified granuloma within the left lower lobe. Linear scarring or atelectasis within the lingula. AIRWAY: Patent and unremarkable. HEART: Size within normal limits. No pericardial effusion MEDIASTINUM: No gross evidence of adenopathy. 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 MUSCULOSKELETAL: No acute osseous abnormalities. No aggressive osseous lesion. SOFT TISSUES/LYMPH NODES: No axial lymphadenopathy. Surgical clips within the left breast. LOWER NECK: No significant findings. ABDOMEN: ABDOMEN LIVER: Diffusely hypoattenuating parenchyma compatible with hepatic steatosis. No focal lesion identi fied. GALLBLADDER AND BILE DUCTS: The gallbladder is surgically absent. No biliary duct dilatation. PANCREAS: Unremarkable. SPLEEN: Unremarkable. ADRENAL GLANDS: Unremarkable. KIDNEYS AND URETERS: No evidence of hydronephrosis or renal calculus. The kidneys enhance symmetrical ly. PELVIS BLADDER: Grossly unremarkable. Streak artifact from hip prosthesis limits evaluation. REPRODUCTIVE: The uterus is surgically absent. ABDOMEN & PELVIS STOMACH AND BOWEL: Submucosal fat deposition within the ascending colon.Scattered diverticula are not ed throughout the colon. Enteric contrast reaches the distal small bowel. No evidence of bowel obstru ction. PERITONEUM: No evidence of pneumoperitoneum or free fluid. VASCULATURE: Mild atherosclerotic calcifications are present throughout the abdominal aorta and its b ranches. No abdominal aortic aneurysm. MUSCULOSKELETAL: No acute osseous abnormalities. No aggressive osseous lesion. Mild disc degeneration changes are present throughout the thoracolumbar spine. Bilateral hip arthroplasty changes. LYMPH NODES: No evidence for lymphadenopathy. SOFT TISSUE/ABDOMINAL WALL: Postsurgical changes within the left groin soft tissues. IMPRESSION: No evidence for recurrence or metastasis. [facility], , 07/03/2024 4:57 PM
== END ==
LOC: RADCTMAIN 13:26
PROVIDERS: ATTEND Internal Medicine Hematology & Oncology
DX: C43.9 Malignant melanoma of skin, unspecified
CPT/HCPCS: 36415; 71260; 74177; 82565; 84520

== ENCOUNTER → 2025-03-07 | Outpatient (CLI) | payer MEDICARE ==
--- NOTE | 2025-03-07 15:16 | MM ---
Reason for Exam: Screening (asymptomatic). Last mammogram was performed 1 year(s) and 1 month(s) ago. Patient History: Menarche at age 12. First Full-Term at age 23. Hysterectomy at age 42. Postmenopausal. Patient has history of breast feeding. Patient tested for BRCA1 outcome was negative. Patient tested for BRCA2 outcome was negative. 2004, Excisional Biopsy on the Left side. 02/19/2016, High risk Cyst Aspiration on the left side. 02/19/2016, High risk Core Biopsy on the left side. 11/27/2007, Benign Core Biopsy on the right side. 11/25/2004, Benign Cyst Aspiration on the left side. 11/25/2004, Benign Ultrasound-Guided Cyst Aspiration on the left side. 11/25/2004, Benign Ultrasound-Guided Cyst Aspiration on the left side. 11/25/2004, Benign Ultrasound-Guided Cyst Aspiration on the left side. 06/21/2012, Bilateral Left U/S Cancelled VAD Biopsy. Mother had breast cancer, age 50. Risk Values: Indira 5 year model risk: 5.4%. NCI Lifetime model risk: 15.8%. Prior Study Comparison: 02/10/2022 Bilateral MG 3D screening mammo w/cad, [facility]. 02/08/2023 Bilateral MG 3D diag mammo w/cad STEFAN, [facility]. 02/14/2024 Bilateral MG 3D screening mammo w/cad, [facility]. Tissue Density: There are scattered areas of fibroglandular density. Findings: Analyzed By CAD. Postsurgical changes on the left. There is an asymmetric density on both sides remain unchanged. Microclip lateral right breast from prior biopsy. There is no suspicious group of microcalcifications or new suspicious mass in either breast. Overall Assessment: Benign, BI-RAD 2 Management: Screening Mammogram of both breasts in 1 year. See note below in regards to the patient's increased 5 year Indira score. Patient should continue monthly self-breast exams. A clinical breast exam by your physician is recommended on an annual basis. This exam should not preclude additional follow-up of suspicious palpable abnormalities. Note on Indira scores and lifetime risk: 1. A Indira score greater than 3% is considered moderate risk. If this is the case, consider specialist referral to assess eligibility for a risk reducing agent. 2. If overall lifetime risk for the development of breast cancer is 20% or higher, the patient may qualify for future screening with alternating mammogram and breast MRI. [facility], , 03/07/2025 3:13 PM. Electronically signed and approved by: Enrique Hernandez M.D. Radiologist
== END | disposition home or self-care (01) ==
LOC: RADMAMWWP 14:15
PROVIDERS: ATTEND Family Medicine
DX: Z12.31 Encounter for screening mammogram for malignant neoplasm of breast (principal); R92.323 Mammographic fibroglandular density, bilateral breasts; Z78.0 Asymptomatic menopausal state; Z80.3 Family history of malignant neoplasm of breast
CPT/HCPCS: 77063; 77067